=== PATIENT | male | born 1950 | race Caucasian/White ===

== ENCOUNTER 2020-05-27 15:05 | Inpatient (IN) ==
--- NOTE | 2020-05-27 15:44 | DR.SOBA ---
HPI Time Seen Time Seen by Provider: 05/27/20 15:39 Primary Care Physician Primary Care Physician: FANY HARRELL HPI Comment HPI Comment: PATIENT IS 69YR OLD MALE IN ER WITH LOW OXYGEN SATURATION ON VENTI MASK. PATIENT IS COMPLAING OF INCREASING SOB AND WHEEZING. ALSO SLIGHT PRODUCTIVE COUGH, YELLOW,LBDOMINAL DISCOMFORT AND DISTENSION. NO FEVER. COUGHING, YELLOW SPUTUM. COVID 19 TEST 04/18/20, POSITIVE AND 04/22/20 NEGATIVE. Complaints Chief Complaint Doctors Comments: PATIENT FROM THE CUSTODIAL WITH LOW OXYGEN SATURATION ON VENTI MASK NOTED TODAY. Chief Complaint:: REPORT CALLED PER [facility] STAFF, PT IS ON VM AND SATS <80'S DR. SOARES NOTIFIED PER [facility] STAFF AND PT IS TO BE EVALUATED , UPON ARRIVAL TO ER NOTED TO HAVE VM INFUSING PT ALERT AND ORIENTED NO DISTRESS NOTED PT C/O SOB, EXP SLIGHT BILATERAL WHEEZES NOTED ,,BR COVID-19 Coronavirus risk:travel/contact w/high risk person: No Has patient experienced Coronavirus symptoms: Yes Coronavirus symptoms experienced: Shortness of Breath Reviewed Nurses Notes Reviewed: Yes Source History Provided: Parent and Assisted Mode of Arrival Mode of Arrival: Stretcher Timing Onset of Chief Complaint: 05/27/20 Context Onset:: At Rest PE Risk Factors:: None History of:: Asthma, COPD and Anxiety Currently on:: Inhaled Bronchodilators Prehospital Care:: O2 and Inhaled B2 Modifying Factors Worsens:: Exertion and Lying Flat Improves:: Rest and Sitting Up Associated Signs and Symptoms Associated Signs and Symptoms: Wheeze, Cough, Nasal Congestion and Chest Pain If Chest Pain Quality: Pleuritic (TIGHTNESS.) Location: Substernal If Cough Cough: Productive and Yellow Other History Other History: COPD, ASTHMA. PMH PMH Past Medical History: Yes Past Medical History: Anemia, Anxiety, Arthritis, Asthma, COPD, CVA, Depression, Diabetes, GERD and Seizures Past Surgical History: Yes Surgical History: Cholecystectomy and Other Family History History of Family Medical Conditions: Yes Family Medical History: Cancer Social History Does patient currently use any type of tobacco product: No Have you used tobacco products in the last 12 months: No Type of Tobacco Use: None Does any household member use tobacco: No Alcohol Use: None Do you use any recreational Drugs:: No Lives Where: Assisted Travel Risk Coronavirus risk:travel/contact w/high risk person: No Has patient experienced Coronavirus symptoms: Yes Coronavirus symptoms experienced: Shortness of Breath Infectious screening In the last 2 months have you had wt loss of >10#?: NO Have you had fever, night sweats or hemotysis?: No Have you traveled outside the country in the last 6 months?: No Isolation: Droplet ROS Review of Systems Constitutional: See HPI, Weakness and Fatigue; negative Fever Eyes: No Symptoms Reported and See HPI; negative Blurred Vision and Diplopia ENTM: See HPI and Nose Congestion; negative Ear Pain, Nose Discharge and Throat Pain Respiratoy: See HPI, Productive Cough, Short of Breath and Wheezing Cardiovascular: See HPI and Chest Pain (TIGHTNESS); negative Syncope and Cyanosis Gastrointestinal/Abdominal: See HPI, Constipation and Other (ABDOMINAL DISTENTION); negative Abdominal Pain, Diarrhea, Nausea and Vomiting Genitourinary: See HPI; negative Dysuria Neurological: See HPI and Weakness; negative Headache and Dizziness Musculoskeletal: See HPI, Back Pain and Muscle Pain Integumentary: No Symptoms Reported and See HPI; negative Change in Color, Rash and Juandice Hematologic/Lymphatic: See HPI and Easy Bruising; negative Swollen Glands Endocrine: See HPI and Decreased Appetite; negative Increased Thirst and Increased Urine Psychiatric: No Symptoms Reported and See HPI All Other Systems: Reviewed and Negative PE Vital Signs Vitals: Temperature 97.9 F Pulse Rate 73 Respiratory Rate 25 Blood Pressure [Left Arm] 115/55 Blood Pressure [Right Arm] 110/51 Blood Pressure 127/53 O2 Sat by Pulse Oximetry 92 General Limitations: No Limitations General Appearance: Alert and In Distress Head Head Exam: Normal Inspection and Atraumatic Eyes Eye exam: Normal Appearance and PERRL; negative Scleral Icterus and Conjunctival Injection ENT ENT Exam: Normal Exam, Normal Oropharynx, Normal External Ear Exam and TM's Normal Bilaterally Neck Neck Exam: Normal Inspection and Trachea Midline; negative Tenderness and Lymphadenopathy Chest Chest Inspection: Normal Inspection and Symmetric Chest Wall Rise; negative Tenderness Respiratory Respiratory Exam: Normal Lung Sounds Bilat and Respiratory Distress; negative Accessory Muscle Use and Chest Wall Tenderness Respiratory Exam: Bilateral: Wheezing and Bilateral: Rhonchi and Lower: Wheezing and Lower: Rhonchi Cardiovascular Cardiovascular Exam: Regular Rate, Normal Rhythm and Normal Heart Sounds; negative Systolic Murmur and Diastolic Murmur Abdominal Exam Abdominal Exam: Normal Inspection, Normal Bowel Sounds, Soft and Distention; negative Tenderness Extremities Extremities Exam: Normal Inspection and Normal Capillary Refill; negative Tenderness and Calf Tenderness Back Back Exam: Normal Inspection; negative (R) CVA Tenderness and (L) CVA Tenderness Neurologic Neurological Exam: Alert and Oriented X3; negative Motor Sensory Deficit Psychiatric Psychiatric Exam: Normal Affect and Normal Mood Skin Skin Exam: Dry MDM Additional Information Obtained Additional Information Obtained From: Old Records Differential Diagnosis Differential Diagnosis: Asthma, Bronchitis, COPD, Dysrhythmia, Mycardial Infarction, Pneumonia, Pneumothorax, Respiratory Insufficiency and Sinusitis COURSE Treatment Treatment: SEE ORDERS. 1/2NS IN ER. Consultation Consultation Comments: DISCUSSED PATIENT WITH DR. SOARES. HE WILL ADMIT PATIENT. Education/Counseling Education/Counseling: Patient and Family Educated On: Diagnosis ROR Labs Reviewed Laboratory Results Reviewed?: Yes Result Diagrams: 06/06/20 08:06/06/20 08: Laboratory: WBC 4.1 X10^3/uL (3.6-10.0) 05/27/20 15:44 RBC 3.16 X10^6/uL (4.7-6.0) L 05/27/20 15:44 Hgb 9.7 g/dL (13.5-18.0) L 05/27/20 15:44 Hct 29.1 % (42.0-54.0) L 05/27/20 15:44 MCV 92.0 fL (80.0-100.0) 05/27/20 15:44 MCH 30.6 pg (27.0-34.0) 05/27/20 15:44 MCHC 33.2 g/dL (33.0-35.0) 05/27/20 15:44 RDW 15.4 % (11.6-16.5) 05/27/20 15:44 Plt Count 182 X10^3/uL (150.0-450.0) 05/27/20 15:44 MPV 7.9 fL (7.4-11.0) 05/27/20 15:44 Neut % (Auto) 85.4 % (42.0-75.0) H 05/27/20 15:44 Lymph % (Auto) 11.7 % (21.0-51.0) L 05/27/20 15:44 [place] % (Auto) 2.2 % (0.0-13.0) 05/27/20 15:44 Eos % (Auto) 0.6 % (0.9-2.9) L 05/27/20 15:44 Baso % (Auto) 0.1 % (0.2-1.0) L 05/27/20 15:44 Neut # (Auto) 3.5 x10^3/uL (2.2-4.8) 05/27/20 15:44 Lymph # (Auto) 0.5 X10^3/uL (1.3-2.9) L 05/27/20 15:44 [place] # (Auto) 0.1 x10^3/uL (0.3-0.8) L 05/27/20 15:44 Eos # (Auto) 0.0 x10^3/uL (0.0-0.2) 05/27/20 15:44 Baso # (Auto) 0.0 X10^3/uL (0.0-0.1) 05/27/20 15:44 Absolute Nucleated RBC 0.1 /100WBC 05/27/20 15:44 Sodium 136 mmol/L (136-145) 05/27/20 15:44 Corrected Sodium TNP 05/27/20 15:44 Potassium 3.5 mmol/L (3.5-5.1) 05/27/20 15:44 Chloride 98 mmol/L (98-107) 05/27/20 15:44 Carbon Dioxide 32.1 mmol/L (21-32) H 05/27/20 15:44 BUN 18 mg/dL (7-18) 05/27/20 15:44 Creatinine 1.58 mg/dL (0.70-1.30) H 05/27/20 15:44 Est GFR (MDRD) Af Amer 56 (>60) L 05/27/20 15:44 Est GFR (MDRD) Non-Af 46 (>60) L 05/27/20 15:44 Glucose 86 mg/dL (65-99) 05/27/20 15:44 Calcium 8.2 mg/dL (8.5-10.1) L 05/27/20 15:44 Corrected Calcium 9.0 mg/dL (8.5-10.1) 05/27/20 15:44 Total Bilirubin 0.40 mg/dL (0.2-1.0) 05/27/20 15:44 AST 86 Units/L (15-37) H 05/27/20 15:44 ALT 13 Units/L (12-78) 05/27/20 15:44 Alkaline Phosphatase 126 Units/L (46-116) H 05/27/20 15:44 Total Protein 6.1 g/dL (6.4-8.2) L 05/27/20 15:44 Albumin 3.0 g/dL (3.4-5.0) L 05/27/20 15:44 Globulin 3.1 g/dL (2.5-4.5) 05/27/20 15:44 Albumin/Globulin Ratio 1.0 Ratio (1.1-2.1) L 05/27/20 15:44 Amylase 41 Units/L (25-115) 05/27/20 14:54 Lipase 154 Units/L (73-393) 05/27/20 14:54 SARS-CoV-2 (PCR) Positive (NEGATIVE) A 05/27/20 15:32 XRAY XRAY Interpreted by: Radiologist (REPORT NOTED AND DISCUSSED WITH PATIENT. ) and Self Opioid Opioid Risk Tool Age ([place] box if 16-45): No History of Preadolescent Sexual Abuse: No Total: 0 Total Score Risk Category: Low Risk Copyright: Antonio KRAMER predicting aberrant behaviors Diagnosis Discharge Problem: 2019 novel coronavirus detected Pneumonia Qualifiers: Pneumonia type: due to unspecified organism Laterality: bilateral Lung location: lower lobe of lung Qualified Code(s): J18.9 - Pneumonia, unspecified organism Abdominal pain Qualifiers: Abdominal location: generalized Qualified Code(s): R10.84 - Generalized abdominal pain
--- NOTE | 2020-05-27 15:50 | RAD ---
CHEST, 1 VIEWHISTORY: Hypoxia and COVID-19 exposureStudy: Single view of the chest.Comparison:May 18, 2020Findings:The cardiomediastinal silhouette is normal.Patchy bilateral airspace opacities which are new from prior. Osseous structures demonstrate no acute abnormality.IMPRESSION:1. New patchy bilateral airspace opacities highly concerning for multifocal pneumonia.Electronically signed by: MARCE BRADLEY (May 27, 2020 15:49:47)
[2020-05-27 15:51] LABS: BASOPHILS % (AUTO) 0.1 % (0.2-1.0); EOSINOPHILS % (AUTO) 0.6 % (0.9-2.9); HEMATOCRIT 29.1 % (42.0-54.0); HEMOGLOBIN 9.7 g/dL (13.5-18.0); LYMPHOCYTES # (AUTO) 0.5 X10^3/uL (1.3-2.9); LYMPHOCYTES % (AUTO) 11.7 % (21.0-51.0); MEAN CORPUSCULAR HEMOGLOBIN 30.6 pg (27.0-34.0); MEAN CORPUSCULAR HGB CONC 33.2 g/dL (33.0-35.0); MEAN PLATELET VOLUME 7.9 fL (7.4-11.0); MONOCYTES # (AUTO) 0.1 x10^3/uL (0.3-0.8); MONOCYTES % (AUTO) 2.2 % (0.0-13.0); NEUTROPHILS # (AUTO) 3.5 x10^3/uL (2.2-4.8); NEUTROPHILS % (AUTO) 85.4 % (42.0-75.0); PLATELET COUNT 182 X10^3/uL (150.0-450.0); RED BLOOD COUNT 3.16 X10^6/uL (4.7-6.0); RED CELL DISTRIBUTION WIDTH 15.4 % (11.6-16.5); WHITE BLOOD COUNT 4.1 X10^3/uL (3.6-10.0)
[2020-05-27 16:08] LABS: ALANINE AMINOTRANSFERASE 13 Units/L (12-78); ALKALINE PHOSPHATASE 126 Units/L (46-116); ASPARTATE AMINO TRANSFERASE 86 Units/L (15-37); BLOOD UREA NITROGEN 18 mg/dL (7-18); CALCIUM 8.2 mg/dL (8.5-10.1); CARBON DIOXIDE 32.1 mmol/L (21-32); CHLORIDE 98 mmol/L (98-107); CREATININE 1.58 mg/dL (0.70-1.30); SODIUM 136 mmol/L (136-145); TOTAL PROTEIN 6.1 g/dL (6.4-8.2); eGFR NON BLACK RACES 46 (>60)
[2020-05-27 16:33] LABS: AMYLASE 41 Units/L (25-115); LIPASE 154 Units/L (73-393)
--- NOTE | 2020-05-27 16:53 | RAD ---
HISTORYCONSTIPATIONSTUDYKUBCOMPARISONAbdominal film May 05, 2020FINDINGSEvaluation of the abdomen de monstrates a normal bowel gas pattern. No pathological soft tissue mass or calcification can be obse rved. The bony structures are grossly intact. There is no significant increase in stool burden to guerrero ggest constipation.IMPRESSIONNo evidence for acute abdominal pathology identified.Electronically sign ed by: NERI SOLANO (May 27, 2020 16:53:10)
[2020-05-27] MEDS ORDERED: REMDESIVIR (INVESTIGATIONAL DRUG GS-5734) 200 MG in NS 250 ML IV 250 ML IV SCH (19:00)
[2020-05-27] MEDS ORDERED: NS 1/2 1000 ML IV 1,000 ML IV ONE (19:33)
[2020-05-27] MEDS: NS 1/2 1000 ML IV 1,000 ML IV SCH (20:00)
[2020-05-27 20:32] LABS: BASOPHILS % (AUTO) 0.2 % (0.2-1.0); EOSINOPHILS % (AUTO) 0.8 % (0.9-2.9); HEMATOCRIT 30.9 % (42.0-54.0); HEMOGLOBIN 10.3 g/dL (13.5-18.0); LYMPHOCYTES # (AUTO) 0.4 X10^3/uL (1.3-2.9); LYMPHOCYTES % (AUTO) 9.3 % (21.0-51.0); MEAN CORPUSCULAR HEMOGLOBIN 30.6 pg (27.0-34.0); MEAN CORPUSCULAR HGB CONC 33.4 g/dL (33.0-35.0); MEAN CORPUSCULAR VOLUME 91.6 fL (80.0-100.0); MEAN PLATELET VOLUME 7.9 fL (7.4-11.0); MONOCYTES # (AUTO) 0.1 x10^3/uL (0.3-0.8); MONOCYTES % (AUTO) 1.8 % (0.0-13.0); NEUTROPHILS # (AUTO) 3.5 x10^3/uL (2.2-4.8); NEUTROPHILS % (AUTO) 87.9 % (42.0-75.0); PLATELET COUNT 186 X10^3/uL (150.0-450.0); RED BLOOD COUNT 3.37 X10^6/uL (4.7-6.0); RED CELL DISTRIBUTION WIDTH 14.9 % (11.6-16.5)
[2020-05-27] MEDS: ASCORBIC ACID INJ MULTI-DOSE VIAL 1,500 MG in NS 100 ML IV 100 ML IV SCH (21:57)
[2020-05-27] MEDS: PLAQUENIL PO SCH (21:58)
[2020-05-27] MEDS: ROBITUSSIN DM PO SCH (21:58)
[2020-05-27] MEDS: ZINC SULFATE PO SCH (21:58)
[2020-05-27 22:06] LABS: ALANINE AMINOTRANSFERASE 19 Units/L (12-78); ALBUMIN 3.1 g/dL (3.4-5.0); ALKALINE PHOSPHATASE 143 Units/L (46-116); ASPARTATE AMINO TRANSFERASE 95 Units/L (15-37); BLOOD UREA NITROGEN 17 mg/dL (7-18); CALCIUM 8.6 mg/dL (8.5-10.1); CARBON DIOXIDE 33.1 mmol/L (21-32); CHLORIDE 97 mmol/L (98-107); COR CA(FOR HYPOALB) 9.3 mg/dL (8.5-10.1); CREATININE 1.62 mg/dL (0.70-1.30); SODIUM 134 mmol/L (136-145); TOTAL PROTEIN 7.2 g/dL (6.4-8.2); eGFR NON BLACK RACES 45 (>60)
[2020-05-28 00:48] VITALS: BMI 28.8
[2020-05-28] MEDS ORDERED: PHARMACY CONSULT LTC MEDICATIONS XX SCH (01:00)
[2020-05-28] MEDS: ASCORBIC ACID INJ MULTI-DOSE VIAL 1,500 MG in NS 100 ML IV 100 ML IV SCH ×4 (04:00→21:58)
[2020-05-28 05:47] LABS: BASOPHILS % (AUTO) 0.3 % (0.2-1.0); EOSINOPHILS % (AUTO) 1.2 % (0.9-2.9); HEMATOCRIT 31.2 % (42.0-54.0); HEMOGLOBIN 10.4 g/dL (13.5-18.0); LYMPHOCYTES # (AUTO) 0.4 X10^3/uL (1.3-2.9); MEAN CORPUSCULAR HEMOGLOBIN 30.6 pg (27.0-34.0); MEAN CORPUSCULAR HGB CONC 33.3 g/dL (33.0-35.0); MEAN CORPUSCULAR VOLUME 91.9 fL (80.0-100.0); MEAN PLATELET VOLUME 8.6 fL (7.4-11.0); MONOCYTES # (AUTO) 0.1 x10^3/uL (0.3-0.8); MONOCYTES % (AUTO) 1.7 % (0.0-13.0); NEUTROPHILS # (AUTO) 3.3 x10^3/uL (2.2-4.8); NEUTROPHILS % (AUTO) 86.8 % (42.0-75.0); PLATELET COUNT 209 X10^3/uL (150.0-450.0); RED CELL DISTRIBUTION WIDTH 15.6 % (11.6-16.5); WHITE BLOOD COUNT 3.8 X10^3/uL (3.6-10.0)
[2020-05-28 06:24] LABS: ALANINE AMINOTRANSFERASE 27 Units/L (12-78); ALBUMIN 2.8 g/dL (3.4-5.0); ALKALINE PHOSPHATASE 232 Units/L (46-116); ASPARTATE AMINO TRANSFERASE 106 Units/L (15-37); BLOOD UREA NITROGEN 17 mg/dL (7-18); CALCIUM 8.5 mg/dL (8.5-10.1); CARBON DIOXIDE 28.5 mmol/L (21-32); CHLORIDE 97 mmol/L (98-107); COR CA(FOR HYPOALB) 9.5 mg/dL (8.5-10.1); SODIUM 134 mmol/L (136-145); TOTAL PROTEIN 6.8 g/dL (6.4-8.2); eGFR NON BLACK RACES 53 (>60)
[2020-05-28] MEDS ORDERED: VENTOLIN or PROAIR HFA ONE (08:36)
[2020-05-28] MEDS ORDERED: VITAMIN A PO SCH (09:00)
[2020-05-28] MEDS ORDERED: VITAMIN D (1.25MG) PO SCH (09:00)
[2020-05-28] MEDS: ROBITUSSIN DM PO SCH ×4 (09:35→21:59)
[2020-05-28] MEDS: VENTOLIN or PROAIR HFA IN PRN ×2 (09:35→13:20)
[2020-05-28] MEDS: PLAQUENIL PO SCH ×2 (09:39→21:59)
[2020-05-28] MEDS: DECADRON TAB PO SCH (09:40)
[2020-05-28] MEDS: TRICOR TAB 160 MG PO SCH (09:40)
[2020-05-28] MEDS: VSL#3 PO SCH (09:41)
[2020-05-28] MEDS: ZINC SULFATE PO SCH ×2 (09:42→21:59)
[2020-05-28] MEDS: REMDESIVIR (INVESTIGATIONAL DRUG GS-5734) 100 MG in NS 250 ML IV 250 ML IV SCH (11:00)
[2020-05-28] MEDS: LOVENOX INJ 40 MG SYR SC SCH (12:41)
[2020-05-28] MEDS: PULMICORT NEB TX 0.5 MG NEB SCH ×2 (15:45→20:35)
[2020-05-28] MEDS: NS 1/2 1000 ML IV 1,000 ML IV SCH (22:00)
[2020-05-29] MEDS: ASCORBIC ACID INJ MULTI-DOSE VIAL 1,500 MG in NS 100 ML IV 100 ML IV SCH ×4 (03:59→20:09)
[2020-05-29] MEDS: NS 1/2 1000 ML IV 1,000 ML IV SCH ×2 (03:59→16:47)
[2020-05-29 05:39] LABS: BASOPHILS % (AUTO) 0.3 % (0.2-1.0); EOSINOPHILS % (AUTO) 0.1 % (0.9-2.9); HEMOGLOBIN 9.7 g/dL (13.5-18.0); LYMPHOCYTES # (AUTO) 0.3 X10^3/uL (1.3-2.9); LYMPHOCYTES % (AUTO) 6.3 % (21.0-51.0); MEAN CORPUSCULAR HEMOGLOBIN 30.7 pg (27.0-34.0); MEAN CORPUSCULAR HGB CONC 33.5 g/dL (33.0-35.0); MEAN CORPUSCULAR VOLUME 91.5 fL (80.0-100.0); MEAN PLATELET VOLUME 8.6 fL (7.4-11.0); MONOCYTES # (AUTO) 0.2 x10^3/uL (0.3-0.8); MONOCYTES % (AUTO) 3.7 % (0.0-13.0); NEUTROPHILS # (AUTO) 4.4 x10^3/uL (2.2-4.8); NEUTROPHILS % (AUTO) 89.6 % (42.0-75.0); PLATELET COUNT 243 X10^3/uL (150.0-450.0); RED BLOOD COUNT 3.17 X10^6/uL (4.7-6.0); RED CELL DISTRIBUTION WIDTH 15.2 % (11.6-16.5); WHITE BLOOD COUNT 4.9 X10^3/uL (3.6-10.0)
[2020-05-29 06:02] LABS: ALANINE AMINOTRANSFERASE 44 Units/L (12-78); ALBUMIN 2.5 g/dL (3.4-5.0); ALKALINE PHOSPHATASE 335 Units/L (46-116); ASPARTATE AMINO TRANSFERASE 94 Units/L (15-37); BLOOD UREA NITROGEN 16 mg/dL (7-18); CALCIUM 7.9 mg/dL (8.5-10.1); CARBON DIOXIDE 26.6 mmol/L (21-32); CHLORIDE 97 mmol/L (98-107); COR CA(FOR HYPOALB) 9.1 mg/dL (8.5-10.1); CREATININE 1.43 mg/dL (0.70-1.30); SODIUM 134 mmol/L (136-145); TOTAL PROTEIN 6.5 g/dL (6.4-8.2); eGFR NON BLACK RACES 52 (>60)
[2020-05-29] MEDS: ROBITUSSIN DM PO SCH ×4 (09:15→20:09)
[2020-05-29] MEDS: VSL#3 PO SCH (09:15)
[2020-05-29] MEDS: ZINC SULFATE PO SCH ×2 (09:16→20:09)
[2020-05-29] MEDS: TRICOR TAB 160 MG PO SCH (09:16)
[2020-05-29] MEDS: VITAMIN D3 125 mcg (5,000 UNITS) PO SCH (09:16)
[2020-05-29] MEDS: LOVENOX INJ 40 MG SYR SC SCH (09:17)
[2020-05-29] MEDS: DECADRON TAB PO SCH (09:17)
[2020-05-29] MEDS: PLAQUENIL PO SCH ×2 (09:19→20:09)
[2020-05-29] MEDS: REMDESIVIR (INVESTIGATIONAL DRUG GS-5734) 100 MG in NS 250 ML IV 250 ML IV SCH (09:20)
[2020-05-29] MEDS: VITAMIN A PO SCH (09:20)
[2020-05-29] MEDS: PULMICORT NEB TX 0.5 MG NEB SCH ×2 (09:25→20:57)
--- NOTE | 2020-05-29 11:32 | PCM.PROG ---
Progress Note Progress Note for Day of Date of Exam: 05/29/20 Subjective Subjective: Pt is a 69 yo m admitted for COVID19 pneumonia. He was placed on BiPAP yesterday, this morning he was on non-rebreather. He reports some improvement in respiratory status but states had difficulty breathing overnight. Labs/imaging: Wbc 4.9, Hgb 9.7, Plt 243, Na 134, K 4.2, Cr 1.4>1.43, Gluc 100. Treatment course includes immune supplements, Remdesivir, Hydroxychloroquine, Decadron, and bronchodilators. Will continue treatments and closely monitor patient. Follow up labs/imaging in the morning. Past Medical Family Social History Past Med/Fam/Surg Hx: No changes since H&P Allergies: Allergies doxycycline Allergy (Verified 05/27/20 16:45) Sulfa (Sulfonamide Antibiotics) [SULFA] Allergy (Verified 05/27/20 16:45) sulfamethoxazole [From Bactrim] Allergy (Verified 05/27/20 16:45) trimethoprim [From Bactrim] Allergy (Verified 05/27/20 16:45) Review of Systems ROS: No change since H&P Vital Signs and I&O's Vital Signs: Temperature 99.0 F Pulse Rate 75 Respiratory Rate 24 Blood Pressure [Left Arm] 115/55 Blood Pressure [Right Arm] 110/51 Blood Pressure 151/68 O2 Sat by Pulse Oximetry 94 Intake and Output: Intake & Output 05/26/20 05/27/20 05/28/20 05/29/20 23:59 23:59 23:59 23:59 Intake Total 644 / 644 1882 / 1882 422 / 422 Output Total 400 / 400 1150 / 1150 600 / 600 Balance 244 / 244 732 / 732 -178 / -178 Physical Exam Oriented: Normal Eyes: Normal Ear: Normal Respiratory: Diminished and Rhonchi Cardiovascular: Normal : Normal Auscultation: Bowel Sounds: Normal Tenderness: Normal Skin: Normal Musculoskeletal: Normal Speech Pattern: Clear Laboratory and Diagnostics Result Diagrams: 05/29/20 04:51 05/29/20 04:51 Labs: Laboratory WBC 4.9 X10^3/uL (3.6-10.0) 05/29/20 04:51 RBC 3.17 X10^6/uL (4.7-6.0) L 05/29/20 04:51 Hgb 9.7 g/dL (13.5-18.0) L 05/29/20 04:51 Hct 29.0 % (42.0-54.0) L 05/29/20 04:51 MCV 91.5 fL (80.0-100.0) 05/29/20 04:51 MCH 30.7 pg (27.0-34.0) 05/29/20 04:51 MCHC 33.5 g/dL (33.0-35.0) 05/29/20 04:51 RDW 15.2 % (11.6-16.5) 05/29/20 04:51 Plt Count 243 X10^3/uL (150.0-450.0) 05/29/20 04:51 MPV 8.6 fL (7.4-11.0) 05/29/20 04:51 Neut % (Auto) 89.6 % (42.0-75.0) H 05/29/20 04:51 Lymph % (Auto) 6.3 % (21.0-51.0) L 05/29/20 04:51 [place] % (Auto) 3.7 % (0.0-13.0) 05/29/20 04:51 Eos % (Auto) 0.1 % (0.9-2.9) L 05/29/20 04:51 Baso % (Auto) 0.3 % (0.2-1.0) 05/29/20 04:51 Neut # (Auto) 4.4 x10^3/uL (2.2-4.8) 05/29/20 04:51 Lymph # (Auto) 0.3 X10^3/uL (1.3-2.9) L 05/29/20 04:51 [place] # (Auto) 0.2 x10^3/uL (0.3-0.8) L 05/29/20 04:51 Eos # (Auto) 0.0 x10^3/uL (0.0-0.2) 05/29/20 04:51 Baso # (Auto) 0.0 X10^3/uL (0.0-0.1) 05/29/20 04:51 Absolute Nucleated RBC 0.0 /100WBC 05/29/20 04:51 Sodium 134 mmol/L (136-145) L 05/29/20 04:51 Corrected Sodium TNP 05/29/20 04:51 Potassium 4.2 mmol/L (3.5-5.1) 05/29/20 04:51 Chloride 97 mmol/L (98-107) L 05/29/20 04:51 Carbon Dioxide 26.6 mmol/L (21-32) 05/29/20 04:51 BUN 16 mg/dL (7-18) 05/29/20 04:51 Creatinine 1.43 mg/dL (0.70-1.30) H 05/29/20 04:51 Est GFR (MDRD) Af Amer > 60 (>60) 05/29/20 04:51 Est GFR (MDRD) Non-Af 52 (>60) L 05/29/20 04:51 Glucose 100 mg/dL (65-99) H 05/29/20 04:51 Calcium 7.9 mg/dL (8.5-10.1) L 05/29/20 04:51 Corrected Calcium 9.1 mg/dL (8.5-10.1) 05/29/20 04:51 Total Bilirubin 0.40 mg/dL (0.2-1.0) 05/29/20 04:51 AST 94 Units/L (15-37) H 05/29/20 04:51 ALT 44 Units/L (12-78) 05/29/20 04:51 Alkaline Phosphatase 335 Units/L (46-116) H 05/29/20 04:51 Total Protein 6.5 g/dL (6.4-8.2) 05/29/20 04:51 Albumin 2.5 g/dL (3.4-5.0) L 05/29/20 04:51 Globulin 4.0 g/dL (2.5-4.5) 05/29/20 04:51 Albumin/Globulin Ratio 0.6 Ratio (1.1-2.1) L 05/29/20 04:51 Amylase 41 Units/L (25-115) 05/27/20 14:54 Lipase 154 Units/L (73-393) 05/27/20 14:54 SARS-CoV-2 (PCR) Positive (NEGATIVE) A 05/27/20 15:32 Plan (1) COVID-19: Status: Acute Plan: Treatments per protocol. RT support
[2020-05-29] MEDS: VENTOLIN or PROAIR HFA IN PRN (12:45)
[2020-05-30] MEDS: ASCORBIC ACID INJ MULTI-DOSE VIAL 1,500 MG in NS 100 ML IV 100 ML IV SCH ×4 (02:36→21:38)
[2020-05-30] MEDS ORDERED: NS 1/2 1000 ML IV 1,000 ML IV ONE (02:37)
[2020-05-30] MEDS: NS 1/2 1000 ML IV 1,000 ML IV SCH ×3 (02:38→21:39)
[2020-05-30 05:13] LABS: ABG BASE EXCESS 7.6 mmol/L (-2.0-2.0)
[2020-05-30] MEDS: NORCO 5/325 MG TAB PO PRN (05:13)
[2020-05-30 05:15] LABS: ABG ALLEN TEST POS; ABG HCO3 32.7 mmol/L (22-26)
[2020-05-30 05:36] LABS: BASOPHILS % (AUTO) 0.4 % (0.2-1.0); HEMATOCRIT 27.9 % (42.0-54.0); HEMOGLOBIN 9.4 g/dL (13.5-18.0); LYMPHOCYTES # (AUTO) 0.3 X10^3/uL (1.3-2.9); LYMPHOCYTES % (AUTO) 4.7 % (21.0-51.0); MEAN CORPUSCULAR HEMOGLOBIN 30.9 pg (27.0-34.0); MEAN CORPUSCULAR HGB CONC 33.5 g/dL (33.0-35.0); MEAN CORPUSCULAR VOLUME 92.3 fL (80.0-100.0); MEAN PLATELET VOLUME 8.9 fL (7.4-11.0); MONOCYTES # (AUTO) 0.2 x10^3/uL (0.3-0.8); MONOCYTES % (AUTO) 3.4 % (0.0-13.0); NEUTROPHILS # (AUTO) 6.2 x10^3/uL (2.2-4.8); NEUTROPHILS % (AUTO) 91.5 % (42.0-75.0); PLATELET COUNT 258 X10^3/uL (150.0-450.0); RED BLOOD COUNT 3.02 X10^6/uL (4.7-6.0); RED CELL DISTRIBUTION WIDTH 15.5 % (11.6-16.5); WHITE BLOOD COUNT 6.8 X10^3/uL (3.6-10.0)
[2020-05-30 06:05] LABS: ALANINE AMINOTRANSFERASE 37 Units/L (12-78); ALBUMIN 2.6 g/dL (3.4-5.0); ALKALINE PHOSPHATASE 267 Units/L (46-116); ASPARTATE AMINO TRANSFERASE 69 Units/L (15-37); BLOOD UREA NITROGEN 17 mg/dL (7-18); CALCIUM 8.5 mg/dL (8.5-10.1); CHLORIDE 101 mmol/L (98-107); COR CA(FOR HYPOALB) 9.6 mg/dL (8.5-10.1); COR NA(FOR HYPERGLY) 137 mmol/L (136-145); CREATININE 1.26 mg/dL (0.70-1.30); SODIUM 137 mmol/L (136-145); TOTAL PROTEIN 6.5 g/dL (6.4-8.2); eGFR NON BLACK RACES > 60 (>60)
[2020-05-30 06:13] LABS: ANISOCYTOSIS SLIGHT; BAND NEUTROPHILS % 2 % (0-10); HYPOCHROMASIA 1+; OVALOCYTES PRESENT; PLATELET MORPHOLOGY COMMENT NORMAL (NORMAL)
[2020-05-30] MEDS: PULMICORT NEB TX 0.5 MG NEB SCH ×2 (09:15→22:00)
[2020-05-30] MEDS: VENTOLIN or PROAIR HFA IN PRN ×3 (09:15→16:45)
[2020-05-30] MEDS: DECADRON TAB PO SCH (09:36)
[2020-05-30] MEDS: TRICOR TAB 160 MG PO SCH (09:37)
[2020-05-30] MEDS: PLAQUENIL PO SCH ×2 (09:37→21:38)
[2020-05-30] MEDS: ZINC SULFATE PO SCH ×2 (09:38→21:38)
[2020-05-30] MEDS: VITAMIN A PO SCH (09:38)
[2020-05-30] MEDS: VSL#3 PO SCH (09:39)
[2020-05-30] MEDS: VITAMIN D3 125 mcg (5,000 UNITS) PO SCH (09:39)
[2020-05-30] MEDS: LOVENOX INJ 40 MG SYR SC SCH (09:50)
[2020-05-30] MEDS: ROBITUSSIN DM PO SCH ×4 (10:22→21:39)
--- NOTE | 2020-05-30 10:27 | PCM.PROG ---
Progress Note Progress Note for Day of Date of Exam: 05/30/20 Subjective Subjective: Pt is a 69 yo m admitted for COVID19 pneumonia(positive on 05/27). His respiratory status this morning has improved and he currently on 6L nc. Labs/imaging: Wbc 6.8, Hgb 9.4, Plt 258, Na 137, K 4.2, Cr 1.43>1.26, Gluc 114, CRP 200, AB.45/47/84/32.7/97%. CXR pending. Continue treatment course including immune supplements, Remdesivir, Hydroxychloroquine, Decadron, and bronchodilators. Will continue to monitor patient and follow up labs/imaging in the morning. Past Medical Family Social History Past Med/Fam/Surg Hx: No changes since H&P Allergies: Allergies doxycycline Allergy (Verified 05/27/20 16:45) Sulfa (Sulfonamide Antibiotics) [SULFA] Allergy (Verified 05/27/20 16:45) sulfamethoxazole [From Bactrim] Allergy (Verified 05/27/20 16:45) trimethoprim [From Bactrim] Allergy (Verified 05/27/20 16:45) Review of Systems ROS: No change since H&P Vital Signs and I&O's Vital Signs: Temperature 97.5 F Pulse Rate 67 Respiratory Rate 12 Blood Pressure [Left Arm] 115/55 Blood Pressure [Right Arm] 110/51 Blood Pressure 127/58 O2 Sat by Pulse Oximetry 96 Intake and Output: Intake & Output 05/27/20 05/28/20 05/29/20 05/30/20 23:59 23:59 23:59 23:59 Intake Total 644 / 644 1882 / 1882 2141 / 2141 401 / 401 Output Total 400 / 400 1150 / 1150 1150 / 1150 300 / 300 Balance 244 / 244 732 / 732 991 / 991 101 / 101 Physical Exam Oriented: Normal Eyes: Normal Ear: Normal Respiratory: Diminished and Rhonchi Cardiovascular: Normal : Normal Auscultation: Bowel Sounds: Normal Tenderness: Normal Skin: Normal Musculoskeletal: Normal Speech Pattern: Clear Laboratory and Diagnostics Result Diagrams: 05/30/20 04:36 05/30/20 04:36 Labs: Laboratory WBC 6.8 X10^3/uL (3.6-10.0) 05/30/20 04:36 RBC 3.02 X10^6/uL (4.7-6.0) L 05/30/20 04:36 Hgb 9.4 g/dL (13.5-18.0) L 05/30/20 04:36 Hct 27.9 % (42.0-54.0) L 05/30/20 04:36 MCV 92.3 fL (80.0-100.0) 05/30/20 04:36 MCH 30.9 pg (27.0-34.0) 05/30/20 04:36 MCHC 33.5 g/dL (33.0-35.0) 05/30/20 04:36 RDW 15.5 % (11.6-16.5) 05/30/20 04:36 Plt Count 258 X10^3/uL (150.0-450.0) 05/30/20 04:36 Plt Count Comment Adequate (ADEQUATE) 05/30/20 04:36 MPV 8.9 fL (7.4-11.0) 05/30/20 04:36 Neut % (Auto) 91.5 % (42.0-75.0) H 05/30/20 04:36 Lymph % (Auto) 4.7 % (21.0-51.0) L 05/30/20 04:36 [place] % (Auto) 3.4 % (0.0-13.0) 05/30/20 04:36 Eos % (Auto) 0.0 % (0.9-2.9) L 05/30/20 04:36 Baso % (Auto) 0.4 % (0.2-1.0) 05/30/20 04:36 Neut # (Auto) 6.2 x10^3/uL (2.2-4.8) H 05/30/20 04:36 Lymph # (Auto) 0.3 X10^3/uL (1.3-2.9) L 05/30/20 04:36 [place] # (Auto) 0.2 x10^3/uL (0.3-0.8) L 05/30/20 04:36 Eos # (Auto) 0.0 x10^3/uL (0.0-0.2) 05/30/20 04:36 Baso # (Auto) 0.0 X10^3/uL (0.0-0.1) 05/30/20 04:36 Absolute Nucleated RBC 0.0 /100WBC 05/30/20 04:36 Total Counted 100 05/30/20 04:36 Neutrophils % (Manual) 90 % (39-76) H 05/30/20 04:36 Band Neutrophils % 2 % (0-10) 05/30/20 04:36 Lymphocytes % (Manual) 4 % (13-43) L 05/30/20 04:36 Monocytes % (Manual) 4 % (4-9) 05/30/20 04:36 Plt Morphology Comment Normal (NORMAL) 05/30/20 04:36 RBC Morphology Abnormal (NORMAL) 05/30/20 04:36 Hypochromasia 1+ A 05/30/20 04:36 Anisocytosis Slight A 05/30/20 04:36 Ovalocytes Present 05/30/20 04:36 Sample Site Lrad 05/30/20 05:08 ABG pH 7.450 (7.35-7.45) 05/30/20 05:08 ABG pCO2 47.0 mmHg (35.0-45.0) H 05/30/20 05:08 ABG pO2 84.0 mmHg (80.0-100.0) 05/30/20 05:08 ABG HCO3 32.7 mmol/L (22-26) H* 05/30/20 05:08 ABG O2 Saturation 97.0 % (90-100) 05/30/20 05:08 ABG Base Excess 7.6 mmol/L (-2.0-2.0) H 05/30/20 05:08 [place] Test Pos 05/30/20 05:08 A-a Gradient 570.0 mmHg 05/30/20 05:08 FiO2 100.0 05/30/20 05:08 Blood Gas Comments Yashira abg well 05/30/20 05:08 Sodium 137 mmol/L (136-145) 05/30/20 04:36 Corrected Sodium 137 mmol/L (136-145) 05/30/20 04:36 Potassium 4.2 mmol/L (3.5-5.1) 05/30/20 04:36 Chloride 101 mmol/L (98-107) 05/30/20 04:36 Carbon Dioxide 28.0 mmol/L (21-32) 05/30/20 04:36 BUN 17 mg/dL (7-18) 05/30/20 04:36 Creatinine 1.26 mg/dL (0.70-1.30) 05/30/20 04:36 Est GFR (MDRD) Af Amer > 60 (>60) 05/30/20 04:36 Est GFR (MDRD) Non-Af > 60 (>60) 05/30/20 04:36 Glucose 114 mg/dL (65-99) H 05/30/20 04:36 Calcium 8.5 mg/dL (8.5-10.1) 05/30/20 04:36 Corrected Calcium 9.6 mg/dL (8.5-10.1) 05/30/20 04:36 Total Bilirubin 0.30 mg/dL (0.2-1.0) 05/30/20 04:36 AST 69 Units/L (15-37) H 05/30/20 04:36 ALT 37 Units/L (12-78) 05/30/20 04:36 Alkaline Phosphatase 267 Units/L (46-116) H 05/30/20 04:36 C-Reactive Protein 200.70 mg/L (0-3.0) H 05/30/20 04:36 Total Protein 6.5 g/dL (6.4-8.2) 05/30/20 04:36 Albumin 2.6 g/dL (3.4-5.0) L 05/30/20 04:36 Globulin 3.9 g/dL (2.5-4.5) 05/30/20 04:36 Albumin/Globulin Ratio 0.7 Ratio (1.1-2.1) L 05/30/20 04:36 Amylase 41 Units/L (25-115) 05/27/20 14:54 Lipase 154 Units/L (73-393) 05/27/20 14:54 SARS-CoV-2 (PCR) Positive (NEGATIVE) A 05/27/20 15:32 Plan (1) COVID-19: Status: Acute Plan: Treatments per protocol. RT support
[2020-05-30] MEDS: REMDESIVIR (INVESTIGATIONAL DRUG GS-5734) 100 MG in NS 250 ML IV 250 ML IV SCH (12:31)
--- NOTE | 2020-05-30 14:10 | RAD ---
HISTORYCOVID 19, HYPOXIASTUDYCHEST, 1 VIEWCOMPARISONAugust 2019FINDINGSThe trachea is midline. The cardiac silhouette is unremarkable . The lungs demonstrate persistent multifocal airspace opacities with worsening aeration of the left lower lobe and right upper lobe.. The bony thorax is unremarkable.IMPRESSIONWorsening multifocal airspace disease.Electronically signed by: GAGANDEEP BERNSTEIN (May 30, 2020 14:09:36)
[2020-05-30] MEDS ORDERED: VISTARIL PO ONE (14:22)
[2020-05-30] MEDS: VISTARIL PO PRN (14:40)
[2020-05-31] MEDS: ASCORBIC ACID INJ MULTI-DOSE VIAL 1,500 MG in NS 100 ML IV 100 ML IV SCH ×5 (02:01→21:30)
[2020-05-31 06:12] LABS: ALANINE AMINOTRANSFERASE 39 Units/L (12-78); ALBUMIN 2.8 g/dL (3.4-5.0); ALKALINE PHOSPHATASE 272 Units/L (46-116); ASPARTATE AMINO TRANSFERASE 62 Units/L (15-37); BLOOD UREA NITROGEN 19 mg/dL (7-18); CALCIUM 8.4 mg/dL (8.5-10.1); CARBON DIOXIDE 28.4 mmol/L (21-32); CHLORIDE 102 mmol/L (98-107); COR CA(FOR HYPOALB) 9.4 mg/dL (8.5-10.1); CREATININE 1.25 mg/dL (0.70-1.30); SODIUM 139 mmol/L (136-145); eGFR NON BLACK RACES > 60 (>60)
[2020-05-31 06:20] LABS: BASOPHILS % (AUTO) 0.3 % (0.2-1.0); HEMATOCRIT 29.9 % (42.0-54.0); HEMOGLOBIN 9.9 g/dL (13.5-18.0); LYMPHOCYTES # (AUTO) 0.4 X10^3/uL (1.3-2.9); LYMPHOCYTES % (AUTO) 4.6 % (21.0-51.0); MEAN CORPUSCULAR HEMOGLOBIN 30.3 pg (27.0-34.0); MEAN CORPUSCULAR HGB CONC 33.1 g/dL (33.0-35.0); MEAN CORPUSCULAR VOLUME 91.5 fL (80.0-100.0); MEAN PLATELET VOLUME 8.6 fL (7.4-11.0); MONOCYTES # (AUTO) 0.3 x10^3/uL (0.3-0.8); MONOCYTES % (AUTO) 3.1 % (0.0-13.0); NEUTROPHILS # (AUTO) 7.7 x10^3/uL (2.2-4.8); PLATELET COUNT 280 X10^3/uL (150.0-450.0); RED BLOOD COUNT 3.27 X10^6/uL (4.7-6.0); RED CELL DISTRIBUTION WIDTH 15.7 % (11.6-16.5); WHITE BLOOD COUNT 8.4 X10^3/uL (3.6-10.0)
[2020-05-31 07:30] LABS: PLATELET MORPHOLOGY COMMENT NORMAL (NORMAL)
[2020-05-31] MEDS: PULMICORT NEB TX 0.5 MG NEB SCH ×2 (08:05→21:30)
[2020-05-31] MEDS ORDERED: REMDESIVIR (INVESTIGATIONAL DRUG GS-5734) IV ONE (08:57)
[2020-05-31] MEDS ORDERED: NS 250 ML IV 250 ML IV ONE (09:19)
[2020-05-31] MEDS: ZINC SULFATE PO SCH ×2 (10:01→21:30)
[2020-05-31] MEDS: VSL#3 PO SCH (10:01)
[2020-05-31] MEDS: VITAMIN D3 125 mcg (5,000 UNITS) PO SCH (10:01)
[2020-05-31] MEDS: REMDESIVIR (INVESTIGATIONAL DRUG GS-5734) 100 MG in NS 250 ML IV 250 ML IV SCH (10:02)
[2020-05-31] MEDS: ROBITUSSIN DM PO SCH ×4 (10:02→21:30)
[2020-05-31] MEDS: TRICOR TAB 160 MG PO SCH (10:02)
[2020-05-31] MEDS: VITAMIN A PO SCH (10:02)
[2020-05-31] MEDS: PLAQUENIL PO SCH ×2 (10:03→21:30)
[2020-05-31] MEDS: LOVENOX INJ 40 MG SYR SC SCH (10:03)
[2020-05-31] MEDS: DECADRON TAB PO SCH (10:03)
[2020-05-31] MEDS: VISTARIL PO PRN ×2 (11:30→22:22)
[2020-05-31] MEDS: VENTOLIN or PROAIR HFA IN PRN ×3 (12:10→21:30)
--- NOTE | 2020-05-31 16:48 | RAD ---
HISTORYCENTRAL LINE PLACEMENTSTUDYCHEST, 1 [id number]/16/2020FINDINGSThe heart is less prominent. The pulmonary vessels are less prominent. There is some hazy airspace opacity throughout both lungs which is more prominent on the right and has decreased. No effusion or pneumothorax is seen. There is a left subclavian catheter in place with the tip in the distal superior vena cava.IMPRESSIONStatus post left subclavian catheter placement in good position.Slight decrease in the heart size with slowly resolving pulmonary edema.Hazy airspace opacities throughout both lungs which is more prominent on the right and has decreased.Electronically signed by: TASHIA CAVAZOS (May 31, 2020 16:46:43)
[2020-05-31] MEDS: NS 1/2 1000 ML IV 1,000 ML IV SCH ×2 (19:39→22:20)
[2020-05-31] MEDS: NORCO 5/325 MG TAB PO PRN (21:32)
[2020-06-01] MEDS: ASCORBIC ACID INJ MULTI-DOSE VIAL 1,500 MG in NS 100 ML IV 100 ML IV SCH ×4 (02:42→20:10)
[2020-06-01] MEDS: PULMICORT NEB TX 0.5 MG NEB SCH ×2 (08:20→21:55)
[2020-06-01] MEDS: VENTOLIN or PROAIR HFA IN PRN (08:20)
[2020-06-01] MEDS: LOVENOX INJ 40 MG SYR SC SCH (08:22)
[2020-06-01] MEDS: COLACE CAP 100 MG PO SCH ×2 (08:23→20:10)
[2020-06-01] MEDS: DECADRON TAB PO SCH (08:23)
[2020-06-01] MEDS: MILK OF MAGNESIA PO SCH (08:23)
[2020-06-01] MEDS: PLAQUENIL PO SCH ×2 (08:25→20:10)
[2020-06-01] MEDS: ROBITUSSIN DM PO SCH ×4 (08:25→20:12)
[2020-06-01] MEDS: ZINC SULFATE PO SCH ×2 (08:25→20:12)
[2020-06-01] MEDS: TRICOR TAB 160 MG PO SCH (08:25)
[2020-06-01] MEDS: VITAMIN A PO SCH (08:26)
[2020-06-01] MEDS: VITAMIN D3 125 mcg (5,000 UNITS) PO SCH (08:26)
[2020-06-01] MEDS: VSL#3 PO SCH (08:26)
[2020-06-01] MEDS: NORCO 5/325 MG TAB PO PRN (08:30)
[2020-06-01] MEDS ORDERED: ARTIFICIAL TEARS DROPS AFFEYE PRN (10:17)
[2020-06-01] MEDS: COREG TAB 12.5 MG PO SCH ×2 (11:50→20:11)
[2020-06-01] MEDS: PriLOSEC PO SCH ×2 (11:50→20:11)
[2020-06-01] MEDS: LIBRIUM PO PRN (11:50)
[2020-06-01] MEDS: SINEMET (PLAIN) 25/250 MG PO SCH ×3 (11:50→21:00)
[2020-06-01] MEDS: SINGULAIR TAB 10 MG PO SCH (11:50)
[2020-06-01] MEDS: NS 1/2 1000 ML IV 1,000 ML IV SCH ×2 (19:19→20:09)
[2020-06-01] MEDS ORDERED: NS 1/2 1000 ML IV 1,000 ML IV ONE (19:43)
[2020-06-02] MEDS: NS 1/2 1000 ML IV 1,000 ML IV SCH ×2 (02:13→21:17)
[2020-06-02] MEDS: ASCORBIC ACID INJ MULTI-DOSE VIAL 1,500 MG in NS 100 ML IV 100 ML IV SCH ×4 (03:29→21:17)
[2020-06-02 05:00] LABS: BASOPHILS % (AUTO) 0.1 % (0.2-1.0); HEMATOCRIT 28.6 % (42.0-54.0); HEMOGLOBIN 9.4 g/dL (13.5-18.0); LYMPHOCYTES # (AUTO) 0.3 X10^3/uL (1.3-2.9); LYMPHOCYTES % (AUTO) 2.7 % (21.0-51.0); MEAN CORPUSCULAR HEMOGLOBIN 30.8 pg (27.0-34.0); MEAN CORPUSCULAR VOLUME 93.4 fL (80.0-100.0); MEAN PLATELET VOLUME 8.5 fL (7.4-11.0); MONOCYTES # (AUTO) 0.2 x10^3/uL (0.3-0.8); MONOCYTES % (AUTO) 1.7 % (0.0-13.0); NEUTROPHILS # (AUTO) 9.2 x10^3/uL (2.2-4.8); NEUTROPHILS % (AUTO) 95.5 % (42.0-75.0); PLATELET COUNT 152 X10^3/uL (150.0-450.0); RED BLOOD COUNT 3.06 X10^6/uL (4.7-6.0); RED CELL DISTRIBUTION WIDTH 15.8 % (11.6-16.5); WHITE BLOOD COUNT 9.6 X10^3/uL (3.6-10.0)
[2020-06-02 05:13] LABS: ALANINE AMINOTRANSFERASE 21 Units/L (12-78); ALBUMIN 2.3 g/dL (3.4-5.0); ALKALINE PHOSPHATASE 223 Units/L (46-116); ASPARTATE AMINO TRANSFERASE 41 Units/L (15-37); BLOOD UREA NITROGEN 26 mg/dL (7-18); CALCIUM 8.3 mg/dL (8.5-10.1); CARBON DIOXIDE 29.8 mmol/L (21-32); CHLORIDE 104 mmol/L (98-107); COR CA(FOR HYPOALB) 9.7 mg/dL (8.5-10.1); CREATININE 1.33 mg/dL (0.70-1.30); SODIUM 139 mmol/L (136-145); TOTAL PROTEIN 6.1 g/dL (6.4-8.2); eGFR NON BLACK RACES 57 (>60)
[2020-06-02] MEDS: SINEMET (PLAIN) 25/250 MG PO SCH ×3 (05:19→21:19)
[2020-06-02 06:01] LABS: BAND NEUTROPHILS % 2 % (0-10); PLATELET MORPHOLOGY COMMENT NORMAL (NORMAL)
[2020-06-02 06:02] LABS: HYPOCHROMASIA SLIGHT
[2020-06-02] MEDS: VSL#3 PO SCH (09:00)
[2020-06-02] MEDS: VITAMIN D3 125 mcg (5,000 UNITS) PO SCH (09:00)
[2020-06-02] MEDS: ZINC SULFATE PO SCH ×2 (09:00→21:19)
[2020-06-02] MEDS: COREG TAB 12.5 MG PO SCH ×2 (09:00→21:18)
[2020-06-02] MEDS: PriLOSEC PO SCH ×2 (09:00→21:18)
[2020-06-02] MEDS: SINGULAIR TAB 10 MG PO SCH (09:00)
[2020-06-02] MEDS: PLAQUENIL PO SCH ×2 (09:00→21:18)
[2020-06-02] MEDS: TRICOR TAB 160 MG PO SCH (09:00)
[2020-06-02] MEDS: PULMICORT NEB TX 0.5 MG NEB SCH ×2 (09:00→21:15)
[2020-06-02] MEDS: VITAMIN A PO SCH (09:00)
[2020-06-02] MEDS: ROBITUSSIN DM PO SCH ×4 (09:00→21:19)
[2020-06-02] MEDS: LOVENOX INJ 40 MG SYR SC SCH (09:00)
[2020-06-02] MEDS: MILK OF MAGNESIA PO SCH (09:00)
[2020-06-02] MEDS: TUSSIONEX PENNKINETIC SUSP PO PRN (14:30)
[2020-06-02] MEDS ORDERED: ATIVAN INJ 2 MG VIAL ONE (15:14)
[2020-06-02 15:42] LABS: BILIRUBIN,URINE NEGATIVE (NEGATIVE); BLOOD/HEMOGLOBIN,URINE NEGATIVE (NEGATIVE); GLUCOSE, URINE NEGATIVE (NEGATIVE); KETONES,URINE NEGATIVE (NEGATIVE); LEUKOCYTE ESTERASE ,URINE NEGATIVE (NEGATIVE); NITRITES,URINE NEGATIVE (NEGATIVE); PROTEIN,URINE NEGATIVE (NEGATIVE); UROBILINOGEN,URINE NORMAL (NORMAL)
[2020-06-02 15:47] LABS: APPEARANCE,URINE CLEAR (CLEAR); COLOR,URINE YELLOW (YELLOW)
--- NOTE | 2020-06-02 16:31 | RAD ---
CHEST, 1 VIEWHISTORY: PT C/O SOBStudy: Single view of the chest.Comparison:May 31, 2020Findings:The cardiomediastinal silhouette is normal.Extensive bilateral airspace opacities which are stable to mildly worsened when compared to prior. Osseous structures demonstrate no acute abnormality.IMPRESSION:1. Severe [id number] worsened bilateral airspace opacities.Electronically signed by: MARCE BRADLEY (Jun 02, 2020 16:30:25)
[2020-06-02] MEDS: COLACE CAP 100 MG PO SCH (21:18)
[2020-06-02] MEDS: ATIVAN INJ 2 MG VIAL IVP PRN (22:47)
[2020-06-03] MEDS: ASCORBIC ACID INJ MULTI-DOSE VIAL 1,500 MG in NS 100 ML IV 100 ML IV SCH ×4 (02:35→22:00)
[2020-06-03] MEDS ORDERED: NS 1/2 1000 ML IV 1,000 ML IV ONE (05:23)
[2020-06-03] MEDS: NS 1/2 1000 ML IV 1,000 ML IV SCH (06:11)
[2020-06-03] MEDS: SINEMET (PLAIN) 25/250 MG PO SCH ×3 (06:11→22:00)
[2020-06-03] MEDS: VISTARIL PO PRN (06:12)
[2020-06-03] MEDS: PULMICORT NEB TX 0.5 MG NEB SCH ×2 (08:15→22:00)
[2020-06-03] MEDS: VENTOLIN or PROAIR HFA IN PRN ×2 (08:15→12:40)
[2020-06-03] MEDS: PriLOSEC PO SCH ×2 (09:10→22:00)
[2020-06-03] MEDS: VITAMIN A PO SCH (09:10)
[2020-06-03] MEDS: COREG TAB 12.5 MG PO SCH ×2 (09:11→22:00)
[2020-06-03] MEDS: SINGULAIR TAB 10 MG PO SCH (09:11)
[2020-06-03] MEDS: ZINC SULFATE PO SCH ×2 (09:11→22:00)
[2020-06-03] MEDS: VITAMIN D3 125 mcg (5,000 UNITS) PO SCH (09:12)
[2020-06-03] MEDS: TRICOR TAB 160 MG PO SCH (09:12)
[2020-06-03] MEDS: VSL#3 PO SCH (09:13)
[2020-06-03] MEDS: PLAQUENIL PO SCH ×2 (09:13→21:00)
[2020-06-03] MEDS: ROBITUSSIN DM PO SCH ×4 (09:13→22:00)
[2020-06-03] MEDS: LOVENOX INJ 40 MG SYR SC SCH (09:14)
[2020-06-03] MEDS: MILK OF MAGNESIA PO SCH (09:14)
[2020-06-03] MEDS ORDERED: DECADRON TAB PO SCH (10:00)
[2020-06-03] MEDS: DECADRON INJ IVP SCH (11:04)
[2020-06-03 12:13] LABS: ABG BASE EXCESS 7.2 mmol/L (-2.0-2.0)
[2020-06-03 12:14] LABS: ABG HCO3 31.2 mmol/L (22-26)
[2020-06-03 12:15] LABS: ABG ALLEN TEST POS
[2020-06-03] MEDS ORDERED: XOPENEX 1.25 MG/3 ML NEBULE NEB ONE (20:04)
[2020-06-03] MEDS: COLACE CAP 100 MG PO SCH (22:00)
[2020-06-03] MEDS ORDERED: ACTEMRA IV ONE (23:00)
[2020-06-03] MEDS ORDERED: NS IV ONE (23:00)
[2020-06-04] MEDS ORDERED: NS 100 ML IV 100 ML IV ONE (03:18)
[2020-06-04] MEDS: ASCORBIC ACID INJ MULTI-DOSE VIAL 1,500 MG in NS 100 ML IV 100 ML IV SCH ×4 (03:30→22:00)
[2020-06-04] MEDS: NS 1/2 1000 ML IV 1,000 ML IV SCH ×3 (03:31→10:02)
[2020-06-04] MEDS ORDERED: NS 1/2 1000 ML IV 1,000 ML IV ONE (05:21)
[2020-06-04 06:04] LABS: ALANINE AMINOTRANSFERASE 13 Units/L (12-78); ALKALINE PHOSPHATASE 171 Units/L (46-116); ASPARTATE AMINO TRANSFERASE 44 Units/L (15-37); BLOOD UREA NITROGEN 47 mg/dL (7-18); CALCIUM 8.4 mg/dL (8.5-10.1); CARBON DIOXIDE 28.9 mmol/L (21-32); CHLORIDE 103 mmol/L (98-107); CREATININE 1.88 mg/dL (0.70-1.30); SODIUM 140 mmol/L (136-145); TOTAL PROTEIN 6.4 g/dL (6.4-8.2); eGFR NON BLACK RACES 38 (>60)
[2020-06-04 06:05] LABS: BASOPHILS % (AUTO) 0.3 % (0.2-1.0); EOSINOPHILS % (AUTO) 0.2 % (0.9-2.9); HEMATOCRIT 26.5 % (42.0-54.0); LYMPHOCYTES # (AUTO) 0.3 X10^3/uL (1.3-2.9); LYMPHOCYTES % (AUTO) 2.9 % (21.0-51.0); MEAN CORPUSCULAR HEMOGLOBIN 31.3 pg (27.0-34.0); MEAN CORPUSCULAR HGB CONC 34.1 g/dL (33.0-35.0); MEAN CORPUSCULAR VOLUME 91.7 fL (80.0-100.0); MEAN PLATELET VOLUME 8.8 fL (7.4-11.0); MONOCYTES # (AUTO) 0.2 x10^3/uL (0.3-0.8); MONOCYTES % (AUTO) 2.1 % (0.0-13.0); NEUTROPHILS % (AUTO) 94.5 % (42.0-75.0); PLATELET COUNT 90 X10^3/uL (150.0-450.0); RED BLOOD COUNT 2.89 X10^6/uL (4.7-6.0); RED CELL DISTRIBUTION WIDTH 15.6 % (11.6-16.5); WHITE BLOOD COUNT 8.5 X10^3/uL (3.6-10.0)
[2020-06-04] MEDS: SINEMET (PLAIN) 25/250 MG PO SCH ×3 (06:29→22:00)
[2020-06-04 07:40] LABS: PLATELET MORPHOLOGY COMMENT NORMAL (NORMAL)
[2020-06-04] MEDS: PULMICORT NEB TX 0.5 MG NEB SCH ×2 (08:35→20:00)
[2020-06-04] MEDS: SINGULAIR TAB 10 MG PO SCH (09:00)
[2020-06-04] MEDS: DECADRON INJ IVP SCH (09:00)
[2020-06-04] MEDS: VSL#3 PO SCH (09:00)
[2020-06-04] MEDS: MILK OF MAGNESIA PO SCH (09:12)
[2020-06-04] MEDS: LOVENOX INJ 40 MG SYR SC SCH (09:12)
[2020-06-04] MEDS: PLAQUENIL PO SCH ×2 (09:13→22:00)
[2020-06-04] MEDS: PriLOSEC PO SCH ×2 (09:13→22:00)
[2020-06-04] MEDS: ROBITUSSIN DM PO SCH ×4 (09:13→22:00)
[2020-06-04] MEDS: VITAMIN D3 125 mcg (5,000 UNITS) PO SCH (09:14)
[2020-06-04] MEDS: VITAMIN A PO SCH (09:14)
[2020-06-04] MEDS: ACTEMRA 400 MG in NS 100 ML IV 80 ML IV SCH (09:14)
[2020-06-04] MEDS: ZINC SULFATE PO SCH ×2 (09:14→22:00)
[2020-06-04] MEDS: TRICOR TAB 160 MG PO SCH (09:14)
[2020-06-04] MEDS: COREG TAB 12.5 MG PO SCH ×2 (10:02→22:00)
[2020-06-04] MEDS: COLACE CAP 100 MG PO SCH (22:00)
[2020-06-05] MEDS: ASCORBIC ACID INJ MULTI-DOSE VIAL 1,500 MG in NS 100 ML IV 100 ML IV SCH ×4 (04:00→21:50)
[2020-06-05 05:52] LABS: BASOPHILS % (AUTO) 0.3 % (0.2-1.0); HEMATOCRIT 25.2 % (42.0-54.0); HEMOGLOBIN 8.4 g/dL (13.5-18.0); LYMPHOCYTES # (AUTO) 0.1 X10^3/uL (1.3-2.9); MEAN CORPUSCULAR HEMOGLOBIN 30.7 pg (27.0-34.0); MEAN CORPUSCULAR HGB CONC 33.3 g/dL (33.0-35.0); MEAN CORPUSCULAR VOLUME 92.2 fL (80.0-100.0); MEAN PLATELET VOLUME 9.3 fL (7.4-11.0); MONOCYTES # (AUTO) 0.1 x10^3/uL (0.3-0.8); MONOCYTES % (AUTO) 1.9 % (0.0-13.0); NEUTROPHILS # (AUTO) 6.6 x10^3/uL (2.2-4.8); NEUTROPHILS % (AUTO) 95.8 % (42.0-75.0); PLATELET COUNT 102 X10^3/uL (150.0-450.0); RED BLOOD COUNT 2.73 X10^6/uL (4.7-6.0); RED CELL DISTRIBUTION WIDTH 15.6 % (11.6-16.5); WHITE BLOOD COUNT 6.9 X10^3/uL (3.6-10.0)
[2020-06-05] MEDS: NS 1/2 1000 ML IV 1,000 ML IV SCH ×3 (06:01→13:07)
[2020-06-05] MEDS: SINEMET (PLAIN) 25/250 MG PO SCH ×3 (06:02→21:47)
[2020-06-05 06:04] LABS: ALANINE AMINOTRANSFERASE 13 Units/L (12-78); ALKALINE PHOSPHATASE 153 Units/L (46-116); ASPARTATE AMINO TRANSFERASE 47 Units/L (15-37); BLOOD UREA NITROGEN 50 mg/dL (7-18); CALCIUM 8.3 mg/dL (8.5-10.1); CARBON DIOXIDE 26.3 mmol/L (21-32); CHLORIDE 102 mmol/L (98-107); COR CA(FOR HYPOALB) 9.9 mg/dL (8.5-10.1); CREATININE 1.55 mg/dL (0.70-1.30); SODIUM 137 mmol/L (136-145); TOTAL PROTEIN 6.3 g/dL (6.4-8.2); eGFR NON BLACK RACES 47 (>60)
[2020-06-05] MEDS ORDERED: NS 1/2 1000 ML IV 1,000 ML IV ONE (06:19)
[2020-06-05 06:37] LABS: BAND NEUTROPHILS % 2 % (0-10); PLATELET MORPHOLOGY COMMENT NORMAL (NORMAL)
[2020-06-05] MEDS: PULMICORT NEB TX 0.5 MG NEB SCH ×2 (08:55→22:10)
[2020-06-05] MEDS: VSL#3 PO SCH (09:40)
[2020-06-05] MEDS: DECADRON INJ IVP SCH (09:40)
[2020-06-05] MEDS: SINGULAIR TAB 10 MG PO SCH (09:40)
[2020-06-05] MEDS: PLAQUENIL PO SCH ×2 (09:40→21:45)
[2020-06-05] MEDS: ROBITUSSIN DM PO SCH ×4 (09:40→21:45)
[2020-06-05] MEDS: PriLOSEC PO SCH ×2 (09:40→21:45)
[2020-06-05] MEDS: VITAMIN D3 125 mcg (5,000 UNITS) PO SCH (09:40)
[2020-06-05] MEDS: TRICOR TAB 160 MG PO SCH (09:40)
[2020-06-05] MEDS: VITAMIN A PO SCH (09:40)
[2020-06-05] MEDS: COREG TAB 12.5 MG PO SCH ×2 (09:40→21:45)
[2020-06-05] MEDS: ZINC SULFATE PO SCH ×2 (09:40→21:45)
[2020-06-05] MEDS: LOVENOX INJ 40 MG SYR SC SCH (09:40)
[2020-06-05] MEDS: MILK OF MAGNESIA PO SCH (10:17)
[2020-06-05] MEDS: ACTEMRA 400 MG in NS 100 ML IV 80 ML IV SCH (10:30)
--- NOTE | 2020-06-05 10:46 | RAD ---
HISTORYCOVIDSTUDYAP [id number]/19/2020FINDINGSNormal heart size. There are multiple bilateral patchy airspace densities as before. There is slight interval improvement in aeration of the lungs. There is no evidence for pneumothorax or pleural fluid.IMPRESSIONPersistent bilateral infiltrates/pneumonia with slight apparent improvement since 3 days prior.Electronically signed by: LISHA BATISTA (Jun 05, 2020 10:45:42)
[2020-06-05] MEDS: LR 1000 ML IV 1,000 ML IV SCH ×2 (11:00→23:55)
[2020-06-05] MEDS ORDERED: NS 250 ML IV 250 ML IV ONE (14:44)
[2020-06-05] MEDS: COLACE CAP 100 MG PO SCH (21:45)
[2020-06-05] MEDS: LIBRIUM PO PRN (21:52)
[2020-06-05] MEDS: NORCO 5/325 MG TAB PO PRN (22:00)
[2020-06-06] MEDS ORDERED: NS 100 ML IV 100 ML IV ONE ×2 (00:40→08:44)
[2020-06-06] MEDS: LR 1000 ML IV 1,000 ML IV SCH ×3 (01:50→14:48)
[2020-06-06] MEDS ORDERED: ASCORBIC ACID INJ MULTI-DOSE VIAL IV ONE (02:06)
[2020-06-06] MEDS ORDERED: NS 250 ML IV 250 ML IV ONE (02:06)
[2020-06-06] MEDS: ASCORBIC ACID INJ MULTI-DOSE VIAL 1,500 MG in NS 100 ML IV 100 ML IV SCH ×2 (02:10→10:03)
[2020-06-06] MEDS: NS 1/2 1000 ML IV 1,000 ML IV SCH (03:50)
[2020-06-06] MEDS: SINEMET (PLAIN) 25/250 MG PO SCH ×3 (05:30→21:54)
[2020-06-06 08:40] LABS: BASOPHILS % (AUTO) 0 % (0.2-1.0); EOSINOPHILS % (AUTO) 0.1 % (0.9-2.9); HEMATOCRIT 32.7 % (42.0-54.0); HEMOGLOBIN 10.9 g/dL (13.5-18.0); LYMPHOCYTES # (AUTO) 0.2 X10^3/uL (1.3-2.9); MEAN CORPUSCULAR HEMOGLOBIN 30.3 pg (27.0-34.0); MEAN CORPUSCULAR HGB CONC 33.3 g/dL (33.0-35.0); MEAN CORPUSCULAR VOLUME 91.1 fL (80.0-100.0); MEAN PLATELET VOLUME 9.3 fL (7.4-11.0); MONOCYTES # (AUTO) 0.2 x10^3/uL (0.3-0.8); MONOCYTES % (AUTO) 2.5 % (0.0-13.0); NEUTROPHILS # (AUTO) 6.5 x10^3/uL (2.2-4.8); NEUTROPHILS % (AUTO) 94.4 % (42.0-75.0); PLATELET COUNT 86 X10^3/uL (150.0-450.0); RED BLOOD COUNT 3.59 X10^6/uL (4.7-6.0); RED CELL DISTRIBUTION WIDTH 15.6 % (11.6-16.5); WHITE BLOOD COUNT 6.9 X10^3/uL (3.6-10.0)
[2020-06-06 08:50] LABS: ALANINE AMINOTRANSFERASE 12 Units/L (12-78); ALBUMIN 2.1 g/dL (3.4-5.0); ALKALINE PHOSPHATASE 146 Units/L (46-116); ASPARTATE AMINO TRANSFERASE 37 Units/L (15-37); BLOOD UREA NITROGEN 48 mg/dL (7-18); CALCIUM 8.4 mg/dL (8.5-10.1); CARBON DIOXIDE 30.2 mmol/L (21-32); CHLORIDE 103 mmol/L (98-107); COR CA(FOR HYPOALB) 9.9 mg/dL (8.5-10.1); COR NA(FOR HYPERGLY) 140 mmol/L (136-145); SODIUM 139 mmol/L (136-145); TOTAL PROTEIN 6.1 g/dL (6.4-8.2); eGFR NON BLACK RACES 53 (>60)
[2020-06-06] MEDS: PULMICORT NEB TX 0.5 MG NEB SCH ×2 (09:15→21:10)
[2020-06-06 09:24] LABS: BAND NEUTROPHILS % 4 % (0-10); PLATELET MORPHOLOGY COMMENT NORMAL (NORMAL)
[2020-06-06] MEDS: ZINC SULFATE PO SCH ×2 (09:57→21:42)
[2020-06-06] MEDS: PriLOSEC PO SCH ×2 (09:57→21:45)
[2020-06-06] MEDS: DECADRON INJ IVP SCH (09:59)
[2020-06-06] MEDS: COREG TAB 12.5 MG PO SCH ×2 (09:59→21:45)
[2020-06-06] MEDS: VITAMIN D3 125 mcg (5,000 UNITS) PO SCH (09:59)
[2020-06-06] MEDS: LOVENOX INJ 40 MG SYR SC SCH (10:00)
[2020-06-06] MEDS: PLAQUENIL PO SCH ×2 (10:00→21:45)
[2020-06-06] MEDS: SINGULAIR TAB 10 MG PO SCH (10:00)
[2020-06-06] MEDS: TRICOR TAB 160 MG PO SCH (10:01)
[2020-06-06] MEDS: MILK OF MAGNESIA PO SCH (10:01)
[2020-06-06] MEDS: ROBITUSSIN DM PO SCH ×4 (10:01→21:48)
[2020-06-06] MEDS: VITAMIN A PO SCH (10:02)
[2020-06-06] MEDS: VSL#3 PO SCH (10:03)
[2020-06-06] MEDS: ASCORBIC ACID INJ MULTI-DOSE VIAL 1,500 MG in NS 50 ML IV 50 ML IV SCH ×2 (14:47→21:45)
[2020-06-06] MEDS: NORCO 5/325 MG TAB PO PRN (16:00)
[2020-06-06] MEDS: TUSSIONEX PENNKINETIC SUSP PO PRN (21:40)
[2020-06-06] MEDS: COLACE CAP 100 MG PO SCH (21:45)
[2020-06-06] MEDS: LIBRIUM PO PRN (21:45)
[2020-06-07] MEDS: ASCORBIC ACID INJ MULTI-DOSE VIAL 1,500 MG in NS 50 ML IV 50 ML IV SCH ×4 (03:15→22:58)
[2020-06-07] MEDS: LR 1000 ML IV 1,000 ML IV SCH ×3 (03:20→14:02)
[2020-06-07 06:07] LABS: BASOPHILS % (AUTO) 0.3 % (0.2-1.0); EOSINOPHILS % (AUTO) 0.1 % (0.9-2.9); HEMATOCRIT 33.2 % (42.0-54.0); HEMOGLOBIN 11.1 g/dL (13.5-18.0); LYMPHOCYTES # (AUTO) 0.2 X10^3/uL (1.3-2.9); LYMPHOCYTES % (AUTO) 3.4 % (21.0-51.0); MEAN CORPUSCULAR HEMOGLOBIN 30.4 pg (27.0-34.0); MEAN CORPUSCULAR HGB CONC 33.4 g/dL (33.0-35.0); MEAN PLATELET VOLUME 9.6 fL (7.4-11.0); MONOCYTES # (AUTO) 0.2 x10^3/uL (0.3-0.8); MONOCYTES % (AUTO) 3.6 % (0.0-13.0); NEUTROPHILS # (AUTO) 5.2 x10^3/uL (2.2-4.8); NEUTROPHILS % (AUTO) 92.6 % (42.0-75.0); PLATELET COUNT 94 X10^3/uL (150.0-450.0); RED BLOOD COUNT 3.65 X10^6/uL (4.7-6.0); RED CELL DISTRIBUTION WIDTH 15.8 % (11.6-16.5); WHITE BLOOD COUNT 5.6 X10^3/uL (3.6-10.0)
[2020-06-07] MEDS: SINEMET (PLAIN) 25/250 MG PO SCH ×3 (06:30→22:59)
[2020-06-07 06:52] LABS: ALANINE AMINOTRANSFERASE 11 Units/L (12-78); ALBUMIN 2.2 g/dL (3.4-5.0); ALKALINE PHOSPHATASE 131 Units/L (46-116); ASPARTATE AMINO TRANSFERASE 33 Units/L (15-37); BLOOD UREA NITROGEN 40 mg/dL (7-18); CALCIUM 8.5 mg/dL (8.5-10.1); CARBON DIOXIDE 30.5 mmol/L (21-32); CHLORIDE 103 mmol/L (98-107); COR CA(FOR HYPOALB) 9.9 mg/dL (8.5-10.1); SODIUM 140 mmol/L (136-145); TOTAL PROTEIN 5.9 g/dL (6.4-8.2); eGFR NON BLACK RACES 53 (>60)
[2020-06-07 08:03] LABS: BAND NEUTROPHILS % 2 % (0-10); PLATELET MORPHOLOGY COMMENT NORMAL (NORMAL)
[2020-06-07] MEDS: PULMICORT NEB TX 0.5 MG NEB SCH ×2 (08:45→21:11)
[2020-06-07] MEDS: COREG TAB 12.5 MG PO SCH ×3 (09:19→23:02)
[2020-06-07] MEDS: LOVENOX INJ 40 MG SYR SC SCH (09:19)
[2020-06-07] MEDS: DECADRON INJ IVP SCH (09:19)
[2020-06-07] MEDS: MILK OF MAGNESIA PO SCH (09:20)
[2020-06-07] MEDS: PLAQUENIL PO SCH (09:20)
[2020-06-07] MEDS: ROBITUSSIN DM PO SCH ×4 (09:21→22:59)
[2020-06-07] MEDS: PriLOSEC PO SCH ×2 (09:21→23:00)
[2020-06-07] MEDS: TRICOR TAB 160 MG PO SCH (09:22)
[2020-06-07] MEDS: SINGULAIR TAB 10 MG PO SCH (09:22)
[2020-06-07] MEDS: VITAMIN A PO SCH (09:23)
[2020-06-07] MEDS: ZINC SULFATE PO SCH ×2 (09:24→23:02)
[2020-06-07] MEDS: VITAMIN D3 125 mcg (5,000 UNITS) PO SCH (09:24)
[2020-06-07] MEDS: VSL#3 PO SCH (09:24)
[2020-06-07] MEDS: COLACE CAP 100 MG PO SCH (23:00)
[2020-06-08] MEDS: ASCORBIC ACID INJ MULTI-DOSE VIAL 1,500 MG in NS 50 ML IV 50 ML IV SCH ×4 (03:51→21:02)
[2020-06-08] MEDS: LR 1000 ML IV 1,000 ML IV SCH (03:53)
[2020-06-08] MEDS: SINEMET (PLAIN) 25/250 MG PO SCH ×3 (05:26→21:07)
[2020-06-08 06:52] LABS: BASOPHILS % (AUTO) 0.2 % (0.2-1.0); EOSINOPHILS % (AUTO) 1.1 % (0.9-2.9); HEMATOCRIT 35.6 % (42.0-54.0); HEMOGLOBIN 11.8 g/dL (13.5-18.0); LYMPHOCYTES # (AUTO) 0.2 X10^3/uL (1.3-2.9); LYMPHOCYTES % (AUTO) 5.7 % (21.0-51.0); MEAN CORPUSCULAR HEMOGLOBIN 30.2 pg (27.0-34.0); MEAN CORPUSCULAR HGB CONC 33.2 g/dL (33.0-35.0); MONOCYTES # (AUTO) 0.1 x10^3/uL (0.3-0.8); MONOCYTES % (AUTO) 2.3 % (0.0-13.0); NEUTROPHILS # (AUTO) 3.2 x10^3/uL (2.2-4.8); NEUTROPHILS % (AUTO) 90.7 % (42.0-75.0); PLATELET COUNT 80 X10^3/uL (150.0-450.0); RED BLOOD COUNT 3.91 X10^6/uL (4.7-6.0); RED CELL DISTRIBUTION WIDTH 15.3 % (11.6-16.5); WHITE BLOOD COUNT 3.5 X10^3/uL (3.6-10.0)
[2020-06-08 07:10] LABS: ALANINE AMINOTRANSFERASE 12 Units/L (12-78); ALBUMIN 2.2 g/dL (3.4-5.0); ALKALINE PHOSPHATASE 124 Units/L (46-116); ASPARTATE AMINO TRANSFERASE 36 Units/L (15-37); BLOOD UREA NITROGEN 36 mg/dL (7-18); CALCIUM 8.4 mg/dL (8.5-10.1); CARBON DIOXIDE 33.8 mmol/L (21-32); CHLORIDE 102 mmol/L (98-107); COR CA(FOR HYPOALB) 9.8 mg/dL (8.5-10.1); CREATININE 1.21 mg/dL (0.70-1.30); SODIUM 139 mmol/L (136-145); TOTAL PROTEIN 5.8 g/dL (6.4-8.2); eGFR NON BLACK RACES > 60 (>60)
[2020-06-08 08:23] LABS: BAND NEUTROPHILS % 2 % (0-10); PLATELET MORPHOLOGY COMMENT NORMAL (NORMAL)
[2020-06-08] MEDS: DECADRON INJ IVP SCH (09:25)
[2020-06-08] MEDS: VSL#3 PO SCH (09:30)
[2020-06-08] MEDS: VITAMIN A PO SCH (09:30)
[2020-06-08] MEDS: SINGULAIR TAB 10 MG PO SCH (09:30)
[2020-06-08] MEDS: ZINC SULFATE PO SCH ×2 (09:30→21:07)
[2020-06-08] MEDS: VITAMIN D3 125 mcg (5,000 UNITS) PO SCH (09:30)
[2020-06-08] MEDS: TRICOR TAB 160 MG PO SCH (09:30)
[2020-06-08] MEDS: PriLOSEC PO SCH ×2 (09:30→21:04)
[2020-06-08] MEDS: PULMICORT NEB TX 0.5 MG NEB SCH ×2 (09:45→20:50)
[2020-06-08] MEDS: MILK OF MAGNESIA PO SCH (10:13)
[2020-06-08] MEDS: ROBITUSSIN DM PO SCH ×4 (10:14→21:08)
[2020-06-08] MEDS ORDERED: ZESTRIL TAB 20 MG ONE (11:53)
[2020-06-08] MEDS: ZESTRIL TAB 20 MG PO SCH (12:11)
[2020-06-08] MEDS: ATIVAN INJ 2 MG VIAL IVP PRN (14:41)
[2020-06-08] MEDS: COREG TAB 12.5 MG PO SCH (21:05)
[2020-06-08] MEDS: COLACE CAP 100 MG PO SCH (21:07)
[2020-06-09] MEDS: ASCORBIC ACID INJ MULTI-DOSE VIAL 1,500 MG in NS 50 ML IV 50 ML IV SCH ×4 (03:46→20:31)
[2020-06-09] MEDS: LR 1000 ML IV 1,000 ML IV SCH ×3 (04:20→17:42)
[2020-06-09 05:04] LABS: BASOPHILS % (AUTO) 0.2 % (0.2-1.0); EOSINOPHILS % (AUTO) 0.4 % (0.9-2.9); HEMATOCRIT 35.7 % (42.0-54.0); HEMOGLOBIN 11.8 g/dL (13.5-18.0); LYMPHOCYTES # (AUTO) 0.2 X10^3/uL (1.3-2.9); LYMPHOCYTES % (AUTO) 4.7 % (21.0-51.0); MEAN CORPUSCULAR HEMOGLOBIN 30.1 pg (27.0-34.0); MEAN CORPUSCULAR VOLUME 91.1 fL (80.0-100.0); MEAN PLATELET VOLUME 9.3 fL (7.4-11.0); MONOCYTES # (AUTO) 0.1 x10^3/uL (0.3-0.8); MONOCYTES % (AUTO) 2.8 % (0.0-13.0); NEUTROPHILS # (AUTO) 3.8 x10^3/uL (2.2-4.8); NEUTROPHILS % (AUTO) 91.9 % (42.0-75.0); PLATELET COUNT 94 X10^3/uL (150.0-450.0); RED BLOOD COUNT 3.91 X10^6/uL (4.7-6.0); RED CELL DISTRIBUTION WIDTH 14.8 % (11.6-16.5); WHITE BLOOD COUNT 4.1 X10^3/uL (3.6-10.0)
[2020-06-09 05:09] LABS: ALANINE AMINOTRANSFERASE 15 Units/L (12-78); ALBUMIN 2.2 g/dL (3.4-5.0); ALKALINE PHOSPHATASE 114 Units/L (46-116); ASPARTATE AMINO TRANSFERASE 30 Units/L (15-37); BLOOD UREA NITROGEN 32 mg/dL (7-18); CALCIUM 8.4 mg/dL (8.5-10.1); CARBON DIOXIDE 36.7 mmol/L (21-32); CHLORIDE 101 mmol/L (98-107); COR CA(FOR HYPOALB) 9.8 mg/dL (8.5-10.1); CREATININE 1.06 mg/dL (0.70-1.30); SODIUM 138 mmol/L (136-145); TOTAL PROTEIN 5.4 g/dL (6.4-8.2); eGFR NON BLACK RACES > 60 (>60)
[2020-06-09 06:17] LABS: PLATELET MORPHOLOGY COMMENT NORMAL (NORMAL)
[2020-06-09] MEDS: SINEMET (PLAIN) 25/250 MG PO SCH ×2 (06:57→13:58)
[2020-06-09] MEDS: PULMICORT NEB TX 0.5 MG NEB SCH ×2 (08:20→21:00)
[2020-06-09] MEDS: DECADRON INJ IVP SCH (08:31)
[2020-06-09] MEDS: COREG TAB 12.5 MG PO SCH ×2 (08:31→20:52)
[2020-06-09] MEDS: MILK OF MAGNESIA PO SCH (08:31)
[2020-06-09] MEDS: ECOTRIN TAB 325 MG PO SCH (08:31)
[2020-06-09] MEDS: PriLOSEC PO SCH ×2 (08:32→20:52)
[2020-06-09] MEDS: TRICOR TAB 160 MG PO SCH (08:32)
[2020-06-09] MEDS: SINGULAIR TAB 10 MG PO SCH (08:32)
[2020-06-09] MEDS: ROBITUSSIN DM PO SCH ×4 (08:32→20:52)
[2020-06-09] MEDS: ZESTRIL TAB 20 MG PO SCH (08:33)
[2020-06-09] MEDS: VITAMIN A PO SCH (08:33)
[2020-06-09] MEDS: VSL#3 PO SCH (08:33)
[2020-06-09] MEDS: VITAMIN D3 125 mcg (5,000 UNITS) PO SCH (08:33)
[2020-06-09] MEDS: ZINC SULFATE PO SCH ×2 (08:34→20:52)
[2020-06-09] MEDS: COLACE CAP 100 MG PO SCH (20:51)
[2020-06-10] MEDS: SINEMET (PLAIN) 25/250 MG PO SCH ×4 (00:10→21:47)
[2020-06-10] MEDS: LR 1000 ML IV 1,000 ML IV SCH ×4 (01:26→20:53)
[2020-06-10] MEDS: ASCORBIC ACID INJ MULTI-DOSE VIAL 1,500 MG in NS 50 ML IV 50 ML IV SCH ×4 (02:38→20:54)
[2020-06-10 04:41] LABS: BASOPHILS % (AUTO) 0.2 % (0.2-1.0); EOSINOPHILS % (AUTO) 0.6 % (0.9-2.9); HEMATOCRIT 36.8 % (42.0-54.0); HEMOGLOBIN 12.1 g/dL (13.5-18.0); LYMPHOCYTES # (AUTO) 0.2 X10^3/uL (1.3-2.9); LYMPHOCYTES % (AUTO) 3.1 % (21.0-51.0); MEAN CORPUSCULAR HEMOGLOBIN 30.1 pg (27.0-34.0); MEAN CORPUSCULAR HGB CONC 32.9 g/dL (33.0-35.0); MEAN CORPUSCULAR VOLUME 91.4 fL (80.0-100.0); MEAN PLATELET VOLUME 9.2 fL (7.4-11.0); MONOCYTES # (AUTO) 0.1 x10^3/uL (0.3-0.8); MONOCYTES % (AUTO) 2.5 % (0.0-13.0); NEUTROPHILS # (AUTO) 5.4 x10^3/uL (2.2-4.8); NEUTROPHILS % (AUTO) 93.6 % (42.0-75.0); PLATELET COUNT 106 X10^3/uL (150.0-450.0); RED BLOOD COUNT 4.03 X10^6/uL (4.7-6.0); RED CELL DISTRIBUTION WIDTH 14.6 % (11.6-16.5); WHITE BLOOD COUNT 5.8 X10^3/uL (3.6-10.0)
[2020-06-10 04:47] LABS: ALANINE AMINOTRANSFERASE 17 Units/L (12-78); ALBUMIN 2.2 g/dL (3.4-5.0); ALKALINE PHOSPHATASE 107 Units/L (46-116); ASPARTATE AMINO TRANSFERASE 36 Units/L (15-37); BLOOD UREA NITROGEN 32 mg/dL (7-18); CALCIUM 8.3 mg/dL (8.5-10.1); CARBON DIOXIDE 33.1 mmol/L (21-32); CHLORIDE 100 mmol/L (98-107); COR CA(FOR HYPOALB) 9.7 mg/dL (8.5-10.1); SODIUM 137 mmol/L (136-145); TOTAL PROTEIN 5.3 g/dL (6.4-8.2); eGFR NON BLACK RACES > 60 (>60)
[2020-06-10 05:03] LABS: PLATELET MORPHOLOGY COMMENT NORMAL (NORMAL)
[2020-06-10] MEDS: DECADRON INJ IVP SCH (09:16)
[2020-06-10] MEDS: ECOTRIN TAB 325 MG PO SCH (09:16)
[2020-06-10] MEDS: COREG TAB 12.5 MG PO SCH ×2 (09:16→20:55)
[2020-06-10] MEDS: ROBITUSSIN DM PO SCH ×5 (09:17→20:55)
[2020-06-10] MEDS: ZINC SULFATE PO SCH ×2 (09:17→20:55)
[2020-06-10] MEDS: MILK OF MAGNESIA PO SCH (09:17)
[2020-06-10] MEDS: PriLOSEC PO SCH ×2 (09:17→20:55)
[2020-06-10] MEDS: SINGULAIR TAB 10 MG PO SCH (09:17)
[2020-06-10] MEDS: VITAMIN D3 125 mcg (5,000 UNITS) PO SCH (09:18)
[2020-06-10] MEDS: TRICOR TAB 160 MG PO SCH (09:18)
[2020-06-10] MEDS: ZESTRIL TAB 20 MG PO SCH (09:18)
[2020-06-10] MEDS: VITAMIN A PO SCH (09:18)
[2020-06-10] MEDS: VSL#3 PO SCH (09:18)
[2020-06-10] MEDS: PULMICORT NEB TX 0.5 MG NEB SCH ×2 (09:25→21:10)
[2020-06-10] MEDS ORDERED: VASOTEC INJ 2.5 MG VIAL ONE (15:33)
[2020-06-10] MEDS: VASOTEC INJ 2.5 MG VIAL IVP PRN ×2 (15:56→19:55)
[2020-06-10] MEDS: COLACE CAP 100 MG PO SCH (20:54)
[2020-06-11] MEDS: VASOTEC INJ 2.5 MG VIAL IVP PRN (02:10)
[2020-06-11] MEDS: ASCORBIC ACID INJ MULTI-DOSE VIAL 1,500 MG in NS 50 ML IV 50 ML IV SCH ×4 (02:55→21:55)
[2020-06-11] MEDS: SINEMET (PLAIN) 25/250 MG PO SCH ×3 (05:14→22:32)
[2020-06-11 05:20] LABS: BASOPHILS % (AUTO) 0.1 % (0.2-1.0); EOSINOPHILS # (AUTO) 0.1 x10^3/uL (0.0-0.2); EOSINOPHILS % (AUTO) 1.1 % (0.9-2.9); HEMOGLOBIN 13.1 g/dL (13.5-18.0); LYMPHOCYTES # (AUTO) 0.2 X10^3/uL (1.3-2.9); LYMPHOCYTES % (AUTO) 3.1 % (21.0-51.0); MEAN CORPUSCULAR HEMOGLOBIN 30.1 pg (27.0-34.0); MEAN CORPUSCULAR HGB CONC 33.5 g/dL (33.0-35.0); MEAN CORPUSCULAR VOLUME 89.8 fL (80.0-100.0); MEAN PLATELET VOLUME 8.8 fL (7.4-11.0); MONOCYTES # (AUTO) 0.1 x10^3/uL (0.3-0.8); MONOCYTES % (AUTO) 1.5 % (0.0-13.0); NEUTROPHILS # (AUTO) 5.6 x10^3/uL (2.2-4.8); NEUTROPHILS % (AUTO) 94.2 % (42.0-75.0); PLATELET COUNT 99 X10^3/uL (150.0-450.0); RED BLOOD COUNT 4.34 X10^6/uL (4.7-6.0); RED CELL DISTRIBUTION WIDTH 15.1 % (11.6-16.5)
[2020-06-11 05:36] LABS: ALANINE AMINOTRANSFERASE 16 Units/L (12-78); ALBUMIN 2.3 g/dL (3.4-5.0); ALKALINE PHOSPHATASE 110 Units/L (46-116); ASPARTATE AMINO TRANSFERASE 40 Units/L (15-37); BLOOD UREA NITROGEN 30 mg/dL (7-18); CALCIUM 8.3 mg/dL (8.5-10.1); CARBON DIOXIDE 32.9 mmol/L (21-32); CHLORIDE 99 mmol/L (98-107); COR CA(FOR HYPOALB) 9.7 mg/dL (8.5-10.1); CREATININE 0.95 mg/dL (0.70-1.30); SODIUM 135 mmol/L (136-145); TOTAL PROTEIN 5.5 g/dL (6.4-8.2); eGFR NON BLACK RACES > 60 (>60)
[2020-06-11 06:13] LABS: BAND NEUTROPHILS % 5 % (0-10); PLATELET MORPHOLOGY COMMENT NORMAL (NORMAL)
[2020-06-11] MEDS: PULMICORT NEB TX 0.5 MG NEB SCH ×2 (09:35→21:00)
[2020-06-11] MEDS: DUONEB 0.5 MG/3 MG (3 mL) NEB SCH ×4 (09:35→21:00)
[2020-06-11] MEDS: COREG TAB 12.5 MG PO SCH ×2 (09:40→21:57)
[2020-06-11] MEDS: DECADRON INJ IVP SCH (09:41)
[2020-06-11] MEDS: LR 1000 ML IV 1,000 ML IV SCH ×2 (10:05→22:31)
[2020-06-11] MEDS: ECOTRIN TAB 325 MG PO SCH (10:05)
[2020-06-11] MEDS: MILK OF MAGNESIA PO SCH (10:06)
[2020-06-11] MEDS: PriLOSEC PO SCH ×2 (10:06→21:58)
[2020-06-11] MEDS: SINGULAIR TAB 10 MG PO SCH (10:07)
[2020-06-11] MEDS: ROBITUSSIN DM PO SCH ×4 (10:07→21:58)
[2020-06-11] MEDS: VITAMIN A PO SCH (10:08)
[2020-06-11] MEDS: TRICOR TAB 160 MG PO SCH (10:08)
[2020-06-11] MEDS: VITAMIN D3 125 mcg (5,000 UNITS) PO SCH (10:09)
[2020-06-11] MEDS: ZINC SULFATE PO SCH ×2 (10:10→21:58)
[2020-06-11] MEDS: ZESTRIL TAB 20 MG PO SCH (10:10)
[2020-06-11] MEDS: VSL#3 PO SCH (10:10)
[2020-06-11] MEDS: COLACE CAP 100 MG PO SCH (21:57)
[2020-06-11] MEDS ORDERED: VASOTEC INJ 2.5 MG VIAL ONE (22:13)
[2020-06-11] MEDS: VASOTEC INJ 2.5 MG VIAL IVP SCH (22:20)
[2020-06-12] MEDS: ASCORBIC ACID INJ MULTI-DOSE VIAL 1,500 MG in NS 50 ML IV 50 ML IV SCH ×4 (03:00→22:00)
[2020-06-12 05:36] LABS: BASOPHILS % (AUTO) 0.1 % (0.2-1.0); EOSINOPHILS # (AUTO) 0.1 x10^3/uL (0.0-0.2); EOSINOPHILS % (AUTO) 0.8 % (0.9-2.9); HEMATOCRIT 38.3 % (42.0-54.0); LYMPHOCYTES # (AUTO) 0.2 X10^3/uL (1.3-2.9); LYMPHOCYTES % (AUTO) 3.5 % (21.0-51.0); MEAN CORPUSCULAR HEMOGLOBIN 30.3 pg (27.0-34.0); MEAN CORPUSCULAR HGB CONC 33.8 g/dL (33.0-35.0); MEAN CORPUSCULAR VOLUME 89.5 fL (80.0-100.0); MEAN PLATELET VOLUME 8.5 fL (7.4-11.0); MONOCYTES # (AUTO) 0.1 x10^3/uL (0.3-0.8); MONOCYTES % (AUTO) 1.5 % (0.0-13.0); NEUTROPHILS # (AUTO) 6.3 x10^3/uL (2.2-4.8); NEUTROPHILS % (AUTO) 94.1 % (42.0-75.0); PLATELET COUNT 100 X10^3/uL (150.0-450.0); RED BLOOD COUNT 4.27 X10^6/uL (4.7-6.0); RED CELL DISTRIBUTION WIDTH 14.8 % (11.6-16.5); WHITE BLOOD COUNT 6.7 X10^3/uL (3.6-10.0)
[2020-06-12 05:47] LABS: ALANINE AMINOTRANSFERASE 16 Units/L (12-78); ALBUMIN 2.4 g/dL (3.4-5.0); ALKALINE PHOSPHATASE 113 Units/L (46-116); ASPARTATE AMINO TRANSFERASE 44 Units/L (15-37); BLOOD UREA NITROGEN 28 mg/dL (7-18); CALCIUM 8.2 mg/dL (8.5-10.1); CHLORIDE 98 mmol/L (98-107); COR CA(FOR HYPOALB) 9.5 mg/dL (8.5-10.1); CREATININE 0.93 mg/dL (0.70-1.30); SODIUM 135 mmol/L (136-145); TOTAL PROTEIN 5.5 g/dL (6.4-8.2); eGFR NON BLACK RACES > 60 (>60)
[2020-06-12 06:01] LABS: BAND NEUTROPHILS % 5 % (0-10)
[2020-06-12 06:02] LABS: PLATELET MORPHOLOGY COMMENT NORMAL (NORMAL)
[2020-06-12] MEDS: SINEMET (PLAIN) 25/250 MG PO SCH ×3 (06:35→23:09)
[2020-06-12] MEDS: LR 1000 ML IV 1,000 ML IV SCH ×2 (06:51→14:52)
[2020-06-12] MEDS: VITAMIN D3 125 mcg (5,000 UNITS) PO SCH (08:09)
[2020-06-12] MEDS: VITAMIN A PO SCH (08:10)
[2020-06-12] MEDS: ROBITUSSIN DM PO SCH ×4 (08:10→23:08)
[2020-06-12] MEDS: ECOTRIN TAB 325 MG PO SCH (08:10)
[2020-06-12] MEDS: ZESTRIL TAB 20 MG PO SCH (08:10)
[2020-06-12] MEDS: ZINC SULFATE PO SCH ×2 (08:10→23:09)
[2020-06-12] MEDS: SINGULAIR TAB 10 MG PO SCH (08:11)
[2020-06-12] MEDS: VSL#3 PO SCH (08:11)
[2020-06-12] MEDS: TRICOR TAB 160 MG PO SCH (08:11)
[2020-06-12] MEDS: PriLOSEC PO SCH ×2 (08:12→23:07)
[2020-06-12] MEDS: COREG TAB 12.5 MG PO SCH ×2 (08:12→23:07)
[2020-06-12] MEDS: MILK OF MAGNESIA PO SCH (08:12)
[2020-06-12] MEDS: VENTOLIN or PROAIR HFA IN PRN (08:20)
[2020-06-12] MEDS: PULMICORT NEB TX 0.5 MG NEB SCH ×2 (08:20→21:30)
[2020-06-12] MEDS: VASOTEC INJ 2.5 MG VIAL IVP SCH ×4 (08:28→22:20)
[2020-06-12] MEDS: DECADRON INJ IVP SCH (08:31)
[2020-06-12] MEDS: DUONEB 0.5 MG/3 MG (3 mL) NEB SCH ×4 (09:15→21:30)
[2020-06-12] MEDS: COLACE CAP 100 MG PO SCH (22:50)
[2020-06-13] MEDS: LR 1000 ML IV 1,000 ML IV SCH ×3 (00:40→18:36)
[2020-06-13] MEDS: ASCORBIC ACID INJ MULTI-DOSE VIAL 1,500 MG in NS 50 ML IV 50 ML IV SCH ×4 (03:15→21:47)
[2020-06-13 06:14] LABS: BASOPHILS % (AUTO) 0.2 % (0.2-1.0); EOSINOPHILS # (AUTO) 0.1 x10^3/uL (0.0-0.2); EOSINOPHILS % (AUTO) 1.5 % (0.9-2.9); HEMATOCRIT 37.5 % (42.0-54.0); HEMOGLOBIN 12.7 g/dL (13.5-18.0); LYMPHOCYTES # (AUTO) 0.2 X10^3/uL (1.3-2.9); MEAN CORPUSCULAR HEMOGLOBIN 30.2 pg (27.0-34.0); MEAN CORPUSCULAR HGB CONC 33.8 g/dL (33.0-35.0); MEAN CORPUSCULAR VOLUME 89.5 fL (80.0-100.0); MEAN PLATELET VOLUME 8.9 fL (7.4-11.0); MONOCYTES # (AUTO) 0.1 x10^3/uL (0.3-0.8); MONOCYTES % (AUTO) 1.9 % (0.0-13.0); NEUTROPHILS # (AUTO) 5.5 x10^3/uL (2.2-4.8); NEUTROPHILS % (AUTO) 92.4 % (42.0-75.0); PLATELET COUNT 113 X10^3/uL (150.0-450.0); RED BLOOD COUNT 4.19 X10^6/uL (4.7-6.0); RED CELL DISTRIBUTION WIDTH 14.8 % (11.6-16.5); WHITE BLOOD COUNT 5.9 X10^3/uL (3.6-10.0)
[2020-06-13 06:44] LABS: ALANINE AMINOTRANSFERASE 19 Units/L (12-78); ALBUMIN 2.5 g/dL (3.4-5.0); ALKALINE PHOSPHATASE 104 Units/L (46-116); ASPARTATE AMINO TRANSFERASE 41 Units/L (15-37); BLOOD UREA NITROGEN 24 mg/dL (7-18); CALCIUM 8.1 mg/dL (8.5-10.1); CARBON DIOXIDE 30.5 mmol/L (21-32); CHLORIDE 97 mmol/L (98-107); COR CA(FOR HYPOALB) 9.3 mg/dL (8.5-10.1); CREATININE 0.85 mg/dL (0.70-1.30); SODIUM 136 mmol/L (136-145); TOTAL PROTEIN 5.3 g/dL (6.4-8.2); eGFR NON BLACK RACES > 60 (>60)
[2020-06-13 07:00] LABS: BAND NEUTROPHILS % 10 % (0-10); PLATELET MORPHOLOGY COMMENT NORMAL (NORMAL)
[2020-06-13] MEDS: SINEMET (PLAIN) 25/250 MG PO SCH ×3 (07:59→21:49)
[2020-06-13] MEDS: PriLOSEC PO SCH ×2 (08:40→21:48)
[2020-06-13] MEDS: COREG TAB 12.5 MG PO SCH ×2 (08:40→21:48)
[2020-06-13] MEDS: ECOTRIN TAB 325 MG PO SCH (08:40)
[2020-06-13] MEDS: MILK OF MAGNESIA PO SCH (08:40)
[2020-06-13] MEDS: ROBITUSSIN DM PO SCH ×4 (08:41→21:48)
[2020-06-13] MEDS: VITAMIN A PO SCH (08:41)
[2020-06-13] MEDS: TRICOR TAB 160 MG PO SCH (08:41)
[2020-06-13] MEDS: SINGULAIR TAB 10 MG PO SCH (08:41)
[2020-06-13] MEDS: VITAMIN D3 125 mcg (5,000 UNITS) PO SCH (08:42)
[2020-06-13] MEDS: ZESTRIL TAB 20 MG PO SCH (08:42)
[2020-06-13] MEDS: VSL#3 PO SCH (08:42)
[2020-06-13] MEDS: ZINC SULFATE PO SCH ×2 (08:43→21:49)
[2020-06-13] MEDS: DECADRON INJ IVP SCH (08:56)
[2020-06-13] MEDS: VASOTEC INJ 2.5 MG VIAL IVP SCH ×4 (08:56→21:50)
[2020-06-13] MEDS: DUONEB 0.5 MG/3 MG (3 mL) NEB SCH ×4 (09:35→21:40)
[2020-06-13] MEDS: PULMICORT NEB TX 0.5 MG NEB SCH ×2 (09:35→21:40)
[2020-06-13] MEDS ORDERED: CARDIZEM INJ 125 MG VIAL 125 MG in NS 100 ML IV 100 ML IV PRN (17:41)
[2020-06-13] MEDS ORDERED: CARDIZEM INJ 50 MG VIAL IVP ONE (18:09)
[2020-06-13] MEDS: COLACE CAP 100 MG PO SCH (21:47)
[2020-06-14] MEDS: LR 1000 ML IV 1,000 ML IV SCH ×4 (03:15→22:12)
[2020-06-14] MEDS: ASCORBIC ACID INJ MULTI-DOSE VIAL 1,500 MG in NS 50 ML IV 50 ML IV SCH ×4 (03:19→21:30)
[2020-06-14 05:22] LABS: BASOPHILS % (AUTO) 0.5 % (0.2-1.0); EOSINOPHILS # (AUTO) 0.1 x10^3/uL (0.0-0.2); EOSINOPHILS % (AUTO) 1.4 % (0.9-2.9); HEMATOCRIT 39.3 % (42.0-54.0); HEMOGLOBIN 13.2 g/dL (13.5-18.0); LYMPHOCYTES # (AUTO) 0.3 X10^3/uL (1.3-2.9); LYMPHOCYTES % (AUTO) 4.3 % (21.0-51.0); MEAN CORPUSCULAR HEMOGLOBIN 30.1 pg (27.0-34.0); MEAN CORPUSCULAR HGB CONC 33.5 g/dL (33.0-35.0); MEAN CORPUSCULAR VOLUME 89.8 fL (80.0-100.0); MEAN PLATELET VOLUME 8.9 fL (7.4-11.0); MONOCYTES # (AUTO) 0.1 x10^3/uL (0.3-0.8); MONOCYTES % (AUTO) 1.4 % (0.0-13.0); NEUTROPHILS # (AUTO) 7.3 x10^3/uL (2.2-4.8); NEUTROPHILS % (AUTO) 92.4 % (42.0-75.0); PLATELET COUNT 127 X10^3/uL (150.0-450.0); RED BLOOD COUNT 4.37 X10^6/uL (4.7-6.0); RED CELL DISTRIBUTION WIDTH 14.9 % (11.6-16.5); WHITE BLOOD COUNT 7.9 X10^3/uL (3.6-10.0)
[2020-06-14 05:25] LABS: ALANINE AMINOTRANSFERASE 20 Units/L (12-78); ALBUMIN 2.7 g/dL (3.4-5.0); ALKALINE PHOSPHATASE 109 Units/L (46-116); ASPARTATE AMINO TRANSFERASE 45 Units/L (15-37); BLOOD UREA NITROGEN 21 mg/dL (7-18); CALCIUM 8.3 mg/dL (8.5-10.1); CHLORIDE 97 mmol/L (98-107); COR CA(FOR HYPOALB) 9.3 mg/dL (8.5-10.1); CREATININE 0.84 mg/dL (0.70-1.30); SODIUM 136 mmol/L (136-145); TOTAL PROTEIN 5.8 g/dL (6.4-8.2); eGFR NON BLACK RACES > 60 (>60)
[2020-06-14 05:50] LABS: BAND NEUTROPHILS % 4 % (0-10); PLATELET MORPHOLOGY COMMENT NORMAL (NORMAL)
[2020-06-14] MEDS: SINEMET (PLAIN) 25/250 MG PO SCH ×3 (07:26→22:11)
--- NOTE | 2020-06-14 07:33 | RAD ---
HISTORYCOPD, COVID, PNEUMONIASTUDYCHEST, 1 VIEWCOMPARISONPortable chest June 05, 2020FINDINGSThe trachea is midline. The cardiac silhouette is unremarkable. There persistent bilateral diffuse infiltrates. On the right there is mild worsening of the density of the infiltrate in the right lung base there is mild improvement of the density in the infiltrate in the left lung base but a new interstitial infiltrate is seen in the left upper lobe. The bony thorax is unremarkable.IMPRESSIONMix pattern of worsening and improvement in the bilateral diffuse infiltrates. There is a new interstitial infiltrate in the left upper lobe.Electronically signed by: NERI SOLANO (Jun 14, 2020 07:32:55)
[2020-06-14] MEDS: ZINC SULFATE PO SCH ×2 (09:22→22:11)
[2020-06-14] MEDS: VSL#3 PO SCH (09:23)
[2020-06-14] MEDS: VITAMIN A PO SCH (09:24)
[2020-06-14] MEDS: COREG TAB 12.5 MG PO SCH ×2 (09:24→22:01)
[2020-06-14] MEDS: ZESTRIL TAB 20 MG PO SCH (09:25)
[2020-06-14] MEDS: ECOTRIN TAB 325 MG PO SCH (09:26)
[2020-06-14] MEDS: VITAMIN D3 125 mcg (5,000 UNITS) PO SCH (09:26)
[2020-06-14] MEDS: TRICOR TAB 160 MG PO SCH (09:27)
[2020-06-14] MEDS: PriLOSEC PO SCH ×2 (09:27→22:09)
[2020-06-14] MEDS: MILK OF MAGNESIA PO SCH (09:27)
[2020-06-14] MEDS: SINGULAIR TAB 10 MG PO SCH (09:27)
[2020-06-14] MEDS: ROBITUSSIN DM PO SCH ×4 (09:28→22:09)
[2020-06-14] MEDS: DUONEB 0.5 MG/3 MG (3 mL) NEB SCH ×4 (09:30→20:30)
[2020-06-14] MEDS ORDERED: LOPRESSOR INJ 5 MG AMP IVP PRN (09:30)
[2020-06-14] MEDS: PULMICORT NEB TX 0.5 MG NEB SCH ×2 (09:30→20:30)
[2020-06-14] MEDS: DECADRON INJ IVP SCH (09:55)
[2020-06-14] MEDS: LOVENOX INJ 30 MG SYR SC SCH ×2 (09:58→21:30)
[2020-06-14] MEDS: VASOTEC INJ 2.5 MG VIAL IVP SCH ×4 (09:59→21:30)
[2020-06-14] MEDS: ATIVAN INJ 2 MG VIAL IVP PRN (15:28)
[2020-06-14] MEDS: COLACE CAP 100 MG PO SCH (22:02)
[2020-06-15] MEDS: ASCORBIC ACID INJ MULTI-DOSE VIAL 1,500 MG in NS 50 ML IV 50 ML IV SCH ×4 (03:55→20:44)
[2020-06-15] MEDS ORDERED: ZOSYN VIAL 4.5 GRAMS IV ONE (04:37)
[2020-06-15] MEDS ORDERED: NS 100 ML IV 100 ML IV ONE (04:38)
[2020-06-15] MEDS: LR 1000 ML IV 1,000 ML IV SCH ×2 (05:17→19:45)
[2020-06-15] MEDS: SINEMET (PLAIN) 25/250 MG PO SCH ×3 (05:18→23:13)
[2020-06-15 06:09] LABS: ALANINE AMINOTRANSFERASE 17 Units/L (12-78); ALBUMIN 2.6 g/dL (3.4-5.0); ALKALINE PHOSPHATASE 101 Units/L (46-116); ASPARTATE AMINO TRANSFERASE 47 Units/L (15-37); BLOOD UREA NITROGEN 20 mg/dL (7-18); CALCIUM 8.2 mg/dL (8.5-10.1); CHLORIDE 99 mmol/L (98-107); COR CA(FOR HYPOALB) 9.3 mg/dL (8.5-10.1); SODIUM 137 mmol/L (136-145); TOTAL PROTEIN 5.5 g/dL (6.4-8.2); eGFR NON BLACK RACES > 60 (>60)
[2020-06-15 06:12] LABS: BASOPHILS % (AUTO) 0.2 % (0.2-1.0); EOSINOPHILS # (AUTO) 0.1 x10^3/uL (0.0-0.2); EOSINOPHILS % (AUTO) 0.8 % (0.9-2.9); HEMATOCRIT 35.4 % (42.0-54.0); LYMPHOCYTES # (AUTO) 0.2 X10^3/uL (1.3-2.9); MEAN CORPUSCULAR HEMOGLOBIN 30.3 pg (27.0-34.0); MEAN CORPUSCULAR HGB CONC 33.9 g/dL (33.0-35.0); MEAN CORPUSCULAR VOLUME 89.2 fL (80.0-100.0); MEAN PLATELET VOLUME 8.8 fL (7.4-11.0); MONOCYTES # (AUTO) 0.2 x10^3/uL (0.3-0.8); MONOCYTES % (AUTO) 1.9 % (0.0-13.0); NEUTROPHILS # (AUTO) 7.6 x10^3/uL (2.2-4.8); NEUTROPHILS % (AUTO) 94.1 % (42.0-75.0); PLATELET COUNT 120 X10^3/uL (150.0-450.0); RED BLOOD COUNT 3.97 X10^6/uL (4.7-6.0); RED CELL DISTRIBUTION WIDTH 14.4 % (11.6-16.5); WHITE BLOOD COUNT 8.1 X10^3/uL (3.6-10.0)
[2020-06-15 07:32] LABS: PLATELET MORPHOLOGY COMMENT NORMAL (NORMAL)
[2020-06-15] MEDS: LOVENOX INJ 30 MG SYR SC SCH ×2 (08:24→20:45)
[2020-06-15] MEDS: VASOTEC INJ 2.5 MG VIAL IVP SCH ×4 (08:26→20:44)
[2020-06-15] MEDS: DECADRON INJ IVP SCH (08:26)
[2020-06-15] MEDS: PULMICORT NEB TX 0.5 MG NEB SCH ×2 (09:50→20:55)
[2020-06-15] MEDS: DUONEB 0.5 MG/3 MG (3 mL) NEB SCH ×4 (09:50→20:55)
[2020-06-15] MEDS: MILK OF MAGNESIA PO SCH (10:11)
[2020-06-15] MEDS: COREG TAB 12.5 MG PO SCH ×2 (10:11→20:45)
[2020-06-15] MEDS: ECOTRIN TAB 325 MG PO SCH (10:11)
[2020-06-15] MEDS: PriLOSEC PO SCH ×2 (10:12→20:47)
[2020-06-15] MEDS: ROBITUSSIN DM PO SCH ×4 (10:12→20:47)
[2020-06-15] MEDS: TRICOR TAB 160 MG PO SCH (10:12)
[2020-06-15] MEDS: VITAMIN A PO SCH (10:12)
[2020-06-15] MEDS: SINGULAIR TAB 10 MG PO SCH (10:12)
[2020-06-15] MEDS: ZINC SULFATE PO SCH ×2 (10:13→20:47)
[2020-06-15] MEDS: ZESTRIL TAB 20 MG PO SCH (10:13)
[2020-06-15] MEDS: VSL#3 PO SCH (10:13)
[2020-06-15] MEDS: VITAMIN D3 125 mcg (5,000 UNITS) PO SCH (10:13)
[2020-06-15] MEDS: COLACE CAP 100 MG PO SCH (20:45)
[2020-06-16] MEDS: ASCORBIC ACID INJ MULTI-DOSE VIAL 1,500 MG in NS 50 ML IV 50 ML IV SCH ×4 (03:00→20:19)
[2020-06-16] MEDS: LR 1000 ML IV 1,000 ML IV SCH ×2 (06:33→20:18)
[2020-06-16] MEDS: SINEMET (PLAIN) 25/250 MG PO SCH ×3 (06:34→22:00)
[2020-06-16] MEDS ORDERED: ZESTRIL TAB 20 MG ONE (08:37)
[2020-06-16] MEDS: PULMICORT NEB TX 0.5 MG NEB SCH ×2 (10:15→21:05)
[2020-06-16] MEDS: DUONEB 0.5 MG/3 MG (3 mL) NEB SCH ×4 (10:15→21:05)
[2020-06-16] MEDS: VITAMIN D3 125 mcg (5,000 UNITS) PO SCH (10:41)
[2020-06-16] MEDS: ZESTRIL TAB 20 MG PO SCH (10:41)
[2020-06-16] MEDS: ZINC SULFATE PO SCH ×2 (10:45→20:20)
[2020-06-16] MEDS: VITAMIN A PO SCH (10:45)
[2020-06-16] MEDS: ROBITUSSIN DM PO SCH ×4 (10:45→20:20)
[2020-06-16] MEDS: VSL#3 PO SCH (10:45)
[2020-06-16] MEDS: SINGULAIR TAB 10 MG PO SCH (10:47)
[2020-06-16] MEDS: PriLOSEC PO SCH ×2 (10:47→20:20)
[2020-06-16] MEDS: VASOTEC INJ 2.5 MG VIAL IVP SCH ×4 (10:47→20:20)
[2020-06-16] MEDS: TRICOR TAB 160 MG PO SCH (10:47)
[2020-06-16] MEDS: LOVENOX INJ 30 MG SYR SC SCH ×2 (10:48→20:19)
[2020-06-16] MEDS: ECOTRIN TAB 325 MG PO SCH (10:48)
[2020-06-16] MEDS: MILK OF MAGNESIA PO SCH (10:48)
[2020-06-16] MEDS: DECADRON INJ IVP SCH (10:49)
[2020-06-16] MEDS: COREG TAB 12.5 MG PO SCH ×2 (10:49→20:19)
[2020-06-16] MEDS: COLACE CAP 100 MG PO SCH (20:19)
[2020-06-17] MEDS: ASCORBIC ACID INJ MULTI-DOSE VIAL 1,500 MG in NS 50 ML IV 50 ML IV SCH ×4 (03:40→20:46)
[2020-06-17 06:02] LABS: ALANINE AMINOTRANSFERASE 20 Units/L (12-78); ALBUMIN 2.6 g/dL (3.4-5.0); ALKALINE PHOSPHATASE 105 Units/L (46-116); ASPARTATE AMINO TRANSFERASE 62 Units/L (15-37); BLOOD UREA NITROGEN 15 mg/dL (7-18); CALCIUM 8.2 mg/dL (8.5-10.1); CARBON DIOXIDE 29.8 mmol/L (21-32); CHLORIDE 97 mmol/L (98-107); COR CA(FOR HYPOALB) 9.3 mg/dL (8.5-10.1); CREATININE 0.65 mg/dL (0.70-1.30); SODIUM 135 mmol/L (136-145); TOTAL PROTEIN 5.6 g/dL (6.4-8.2); eGFR NON BLACK RACES > 60 (>60)
[2020-06-17 06:12] LABS: BASOPHILS % (AUTO) 0.2 % (0.2-1.0); EOSINOPHILS # (AUTO) 0.3 x10^3/uL (0.0-0.2); EOSINOPHILS % (AUTO) 6.9 % (0.9-2.9); HEMATOCRIT 36.4 % (42.0-54.0); HEMOGLOBIN 12.4 g/dL (13.5-18.0); LYMPHOCYTES # (AUTO) 0.3 X10^3/uL (1.3-2.9); LYMPHOCYTES % (AUTO) 5.5 % (21.0-51.0); MEAN CORPUSCULAR HEMOGLOBIN 30.2 pg (27.0-34.0); MEAN CORPUSCULAR VOLUME 88.9 fL (80.0-100.0); MEAN PLATELET VOLUME 8.7 fL (7.4-11.0); MONOCYTES # (AUTO) 0 x10^3/uL (0.3-0.8); MONOCYTES % (AUTO) 0.6 % (0.0-13.0); NEUTROPHILS # (AUTO) 4.3 x10^3/uL (2.2-4.8); NEUTROPHILS % (AUTO) 86.8 % (42.0-75.0); PLATELET COUNT 122 X10^3/uL (150.0-450.0); RED BLOOD COUNT 4.09 X10^6/uL (4.7-6.0); RED CELL DISTRIBUTION WIDTH 14.8 % (11.6-16.5); WHITE BLOOD COUNT 4.9 X10^3/uL (3.6-10.0)
[2020-06-17] MEDS: SINEMET (PLAIN) 25/250 MG PO SCH ×3 (06:22→21:47)
[2020-06-17 07:37] LABS: BAND NEUTROPHILS % 6 % (0-10)
[2020-06-17 07:38] LABS: PLATELET MORPHOLOGY COMMENT NORMAL (NORMAL)
[2020-06-17] MEDS: LOVENOX INJ 30 MG SYR SC SCH ×2 (09:30→20:45)
[2020-06-17] MEDS: DECADRON INJ IVP SCH (09:30)
[2020-06-17] MEDS: VASOTEC INJ 2.5 MG VIAL IVP SCH ×4 (09:30→20:44)
[2020-06-17] MEDS ORDERED: LASIX IVP ONE ×2 (09:50→09:52)
[2020-06-17] MEDS: ZESTRIL TAB 20 MG PO SCH (10:04)
[2020-06-17] MEDS: VSL#3 PO SCH (10:04)
[2020-06-17] MEDS: ZINC SULFATE PO SCH ×2 (10:04→20:46)
[2020-06-17] MEDS: SINGULAIR TAB 10 MG PO SCH (10:05)
[2020-06-17] MEDS: VITAMIN D3 125 mcg (5,000 UNITS) PO SCH (10:05)
[2020-06-17] MEDS: VITAMIN A PO SCH (10:05)
[2020-06-17] MEDS: MILK OF MAGNESIA PO SCH (10:06)
[2020-06-17] MEDS: PriLOSEC PO SCH ×2 (10:06→20:46)
[2020-06-17] MEDS: TRICOR TAB 160 MG PO SCH (10:06)
[2020-06-17] MEDS: ROBITUSSIN DM PO SCH ×4 (10:06→20:46)
[2020-06-17] MEDS: ECOTRIN TAB 325 MG PO SCH (10:07)
[2020-06-17] MEDS: COREG TAB 12.5 MG PO SCH ×2 (10:08→20:46)
[2020-06-17] MEDS: LR 1000 ML IV 1,000 ML IV SCH ×2 (10:08→20:46)
--- NOTE | 2020-06-17 10:09 | RAD ---
HISTORYCHFSTUDYCHEST, 1 [id number]/30/2020TECHNIQUEAP view of the chestFINDINGSCardiac size is normal stable compared to prior. Stable mediastinal contour. Diffuse bilateral airspace disease is slightly improved compared to prior. No pleural effusion or pneumothorax. Left subclavian central line in good position.IMPRESSIONMild improvement in diffuse bilateral airspace disease.Electronically signed by: Jordan Campos (Jun 17, 2020 10:08:14)
[2020-06-17] MEDS: PULMICORT NEB TX 0.5 MG NEB SCH ×2 (10:20→21:56)
[2020-06-17] MEDS: DUONEB 0.5 MG/3 MG (3 mL) NEB SCH ×4 (11:00→21:56)
[2020-06-17] MEDS ORDERED: MORPHINE SULFATE INJ 4 MG IVP ONE ×2 (11:26→11:50)
[2020-06-17] MEDS ORDERED: MORPHINE SULFATE INJ 4 MG ONE (11:30)
[2020-06-17] MEDS: COLACE CAP 100 MG PO SCH (20:45)
[2020-06-18] MEDS: ASCORBIC ACID INJ MULTI-DOSE VIAL 1,500 MG in NS 50 ML IV 50 ML IV SCH ×4 (03:12→22:29)
[2020-06-18] MEDS: LR 1000 ML IV 1,000 ML IV SCH ×4 (05:00→22:32)
[2020-06-18 05:22] LABS: BASOPHILS % (AUTO) 0.1 % (0.2-1.0); EOSINOPHILS # (AUTO) 0.1 x10^3/uL (0.0-0.2); EOSINOPHILS % (AUTO) 2.1 % (0.9-2.9); HEMATOCRIT 29.5 % (42.0-54.0); HEMOGLOBIN 9.9 g/dL (13.5-18.0); LYMPHOCYTES # (AUTO) 0.2 X10^3/uL (1.3-2.9); LYMPHOCYTES % (AUTO) 3.3 % (21.0-51.0); MEAN CORPUSCULAR HEMOGLOBIN 30.4 pg (27.0-34.0); MEAN CORPUSCULAR HGB CONC 33.7 g/dL (33.0-35.0); MEAN CORPUSCULAR VOLUME 90.4 fL (80.0-100.0); MEAN PLATELET VOLUME 8.9 fL (7.4-11.0); MONOCYTES # (AUTO) 0.1 x10^3/uL (0.3-0.8); MONOCYTES % (AUTO) 2.7 % (0.0-13.0); NEUTROPHILS # (AUTO) 4.3 x10^3/uL (2.2-4.8); NEUTROPHILS % (AUTO) 91.8 % (42.0-75.0); PLATELET COUNT 84 X10^3/uL (150.0-450.0); RED BLOOD COUNT 3.26 X10^6/uL (4.7-6.0); RED CELL DISTRIBUTION WIDTH 14.6 % (11.6-16.5); WHITE BLOOD COUNT 4.7 X10^3/uL (3.6-10.0)
[2020-06-18 05:28] LABS: ALANINE AMINOTRANSFERASE 19 Units/L (12-78); ALBUMIN 2.3 g/dL (3.4-5.0); ALKALINE PHOSPHATASE 105 Units/L (46-116); ASPARTATE AMINO TRANSFERASE 52 Units/L (15-37); BLOOD UREA NITROGEN 17 mg/dL (7-18); CALCIUM 7.9 mg/dL (8.5-10.1); CARBON DIOXIDE 33.1 mmol/L (21-32); CHLORIDE 97 mmol/L (98-107); COR CA(FOR HYPOALB) 9.3 mg/dL (8.5-10.1); CREATININE 0.69 mg/dL (0.70-1.30); SODIUM 137 mmol/L (136-145); TOTAL PROTEIN 5.1 g/dL (6.4-8.2); eGFR NON BLACK RACES > 60 (>60)
--- NOTE | 2020-06-18 06:09 | RAD ---
HISTORYFollow-up COVID-19STUDYChest AP [id number]/03/2020FINDINGSThere is a left-sided central line in good position. The heart is within normal limits in size. Diffuse bilateral alveolar infiltrates are again identified not signif icantly changed on the right but slightly improved on the left. No pleural effusions are identified. Bony thorax is unremarkable.IMPRESSIONDiffuse bilateral infiltrates unchanged on the right and improv ed somewhat on the leftElectronically signed by: RUSS WOLF (Jun 18, 2020 06:08:31)
[2020-06-18 06:14] LABS: PLATELET MORPHOLOGY COMMENT NORMAL (NORMAL)
[2020-06-18] MEDS: SINEMET (PLAIN) 25/250 MG PO SCH ×3 (06:32→22:32)
[2020-06-18] MEDS: DECADRON INJ IVP SCH (09:30)
[2020-06-18] MEDS: VASOTEC INJ 2.5 MG VIAL IVP SCH ×4 (09:30→22:31)
[2020-06-18] MEDS: LOVENOX INJ 30 MG SYR SC SCH ×2 (09:30→22:30)
[2020-06-18] MEDS: DUONEB 0.5 MG/3 MG (3 mL) NEB SCH ×4 (09:50→20:15)
[2020-06-18] MEDS: PULMICORT NEB TX 0.5 MG NEB SCH ×2 (09:50→20:15)
[2020-06-18] MEDS: ZINC SULFATE PO SCH ×2 (10:01→22:31)
[2020-06-18] MEDS: VITAMIN A PO SCH (10:02)
[2020-06-18] MEDS: VSL#3 PO SCH (10:02)
[2020-06-18] MEDS: VITAMIN D3 125 mcg (5,000 UNITS) PO SCH (10:02)
[2020-06-18] MEDS: ZESTRIL TAB 20 MG PO SCH (10:02)
[2020-06-18] MEDS: TRICOR TAB 160 MG PO SCH (10:03)
[2020-06-18] MEDS: PriLOSEC PO SCH ×2 (10:03→22:31)
[2020-06-18] MEDS: MILK OF MAGNESIA PO SCH (10:03)
[2020-06-18] MEDS: SINGULAIR TAB 10 MG PO SCH (10:03)
[2020-06-18] MEDS: ROBITUSSIN DM PO SCH ×4 (10:03→22:31)
[2020-06-18] MEDS: ECOTRIN TAB 325 MG PO SCH (10:03)
[2020-06-18] MEDS: COREG TAB 12.5 MG PO SCH ×2 (10:05→22:30)
[2020-06-18] MEDS ORDERED: NS 50 ML IV 50 ML IV ONE (14:16)
[2020-06-18] MEDS: COLACE CAP 100 MG PO SCH (22:30)
[2020-06-19] MEDS: ASCORBIC ACID INJ MULTI-DOSE VIAL 1,500 MG in NS 50 ML IV 50 ML IV SCH ×4 (02:23→21:04)
[2020-06-19] MEDS: SINEMET (PLAIN) 25/250 MG PO SCH ×3 (05:43→21:07)
[2020-06-19 05:45] LABS: BASOPHILS % (AUTO) 0.5 % (0.2-1.0); EOSINOPHILS # (AUTO) 0.1 x10^3/uL (0.0-0.2); EOSINOPHILS % (AUTO) 1.7 % (0.9-2.9); HEMATOCRIT 29.2 % (42.0-54.0); HEMOGLOBIN 9.9 g/dL (13.5-18.0); LYMPHOCYTES # (AUTO) 0.1 X10^3/uL (1.3-2.9); LYMPHOCYTES % (AUTO) 3.6 % (21.0-51.0); MEAN CORPUSCULAR HEMOGLOBIN 30.4 pg (27.0-34.0); MEAN CORPUSCULAR HGB CONC 34.1 g/dL (33.0-35.0); MEAN CORPUSCULAR VOLUME 89.1 fL (80.0-100.0); MEAN PLATELET VOLUME 8.7 fL (7.4-11.0); MONOCYTES # (AUTO) 0.1 x10^3/uL (0.3-0.8); MONOCYTES % (AUTO) 3.8 % (0.0-13.0); NEUTROPHILS # (AUTO) 3.5 x10^3/uL (2.2-4.8); NEUTROPHILS % (AUTO) 90.4 % (42.0-75.0); PLATELET COUNT 82 X10^3/uL (150.0-450.0); RED BLOOD COUNT 3.27 X10^6/uL (4.7-6.0); RED CELL DISTRIBUTION WIDTH 14.7 % (11.6-16.5); WHITE BLOOD COUNT 3.8 X10^3/uL (3.6-10.0)
[2020-06-19 05:47] LABS: ALANINE AMINOTRANSFERASE 18 Units/L (12-78); ALBUMIN 2.4 g/dL (3.4-5.0); ALKALINE PHOSPHATASE 99 Units/L (46-116); ASPARTATE AMINO TRANSFERASE 51 Units/L (15-37); BLOOD UREA NITROGEN 16 mg/dL (7-18); CALCIUM 8.1 mg/dL (8.5-10.1); CARBON DIOXIDE 33.3 mmol/L (21-32); CHLORIDE 97 mmol/L (98-107); COR CA(FOR HYPOALB) 9.4 mg/dL (8.5-10.1); CREATININE 0.58 mg/dL (0.70-1.30); SODIUM 136 mmol/L (136-145); TOTAL PROTEIN 5.3 g/dL (6.4-8.2); eGFR NON BLACK RACES > 60 (>60)
[2020-06-19 06:24] LABS: BAND NEUTROPHILS % 8 % (0-10)
[2020-06-19 06:26] LABS: PLATELET MORPHOLOGY COMMENT NORMAL (NORMAL)
[2020-06-19] MEDS: DUONEB 0.5 MG/3 MG (3 mL) NEB SCH ×4 (08:50→21:42)
[2020-06-19] MEDS: PULMICORT NEB TX 0.5 MG NEB SCH ×2 (08:50→21:42)
[2020-06-19] MEDS: COREG TAB 12.5 MG PO SCH ×2 (09:11→21:05)
[2020-06-19] MEDS: PriLOSEC PO SCH ×2 (09:12→21:06)
[2020-06-19] MEDS: MILK OF MAGNESIA PO SCH (09:12)
[2020-06-19] MEDS: ROBITUSSIN DM PO SCH ×4 (09:12→21:06)
[2020-06-19] MEDS: ECOTRIN TAB 325 MG PO SCH (09:12)
[2020-06-19] MEDS: SINGULAIR TAB 10 MG PO SCH (09:12)
[2020-06-19] MEDS: TRICOR TAB 160 MG PO SCH (09:13)
[2020-06-19] MEDS: ZESTRIL TAB 20 MG PO SCH (09:13)
[2020-06-19] MEDS: VSL#3 PO SCH (09:13)
[2020-06-19] MEDS: ZINC SULFATE PO SCH ×2 (09:13→21:07)
[2020-06-19] MEDS: VITAMIN A PO SCH (09:13)
[2020-06-19] MEDS: VITAMIN D3 125 mcg (5,000 UNITS) PO SCH (09:13)
[2020-06-19] MEDS: LOVENOX INJ 30 MG SYR SC SCH ×2 (09:14→21:05)
[2020-06-19] MEDS: DECADRON INJ IVP SCH (09:14)
[2020-06-19] MEDS: VASOTEC INJ 2.5 MG VIAL IVP SCH ×5 (09:15→21:07)
--- NOTE | 2020-06-19 12:26 | PCM.PROG ---
Progress Note Progress Note for Day of Date of Exam: 06/19/20 Subjective Subjective: Pt is a 69 yo m admitted for COVID19 pneumonia. His respiratory status continues to not improve. Labs/imaging: Wbc 3.8, Hgb 9.9, Plt 82, Na 136, K 4.3, Cr 0.58, Gluc 84, CXR on 06/18:Diffuse bilateral infiltrates unchanged on the right and improved somewhat on the left. He is currently on BiPAP w/ FiO2 100%. Continue medications, respiratory therapy, BiPAP support. Will continue to monitor patient and follow up labs/imaging in the morning. Past Medical Family Social History Past Med/Fam/Surg Hx: No changes since H&P Allergies: Allergies doxycycline Allergy (Verified 05/27/20 16:45) Sulfa (Sulfonamide Antibiotics) [SULFA] Allergy (Verified 05/27/20 16:45) sulfamethoxazole [From Bactrim] Allergy (Verified 05/27/20 16:45) trimethoprim [From Bactrim] Allergy (Verified 05/27/20 16:45) Review of Systems ROS: No change since H&P Vital Signs and I&O's Vital Signs: Temperature 97.6 F Pulse Rate 100 Respiratory Rate 37 Blood Pressure [Left Arm] 115/55 Blood Pressure [Right Arm] 110/51 Blood Pressure 156/69 O2 Sat by Pulse Oximetry 80 Intake and Output: Intake & Output 06/16/20 06/17/20 06/18/20 06/19/20 23:59 23:59 23:59 23:59 Intake Total 2460 / 2460 3475 / 3475 3650 / 3650 1200 / 1200 Output Total 2550 / 2550 3000 / 3000 2100 / 2100 700 / 700 Balance -90 / -90 475 / 475 1550 / 1550 500 / 500 Physical Exam Oriented: Other Eyes: Normal Ear: Normal Respiratory: Diminished and Rhonchi Cardiovascular: Normal : Normal Auscultation: Bowel Sounds: Normal Tenderness: Normal Skin: Normal Musculoskeletal: Normal Speech Pattern: Unclear Laboratory and Diagnostics Result Diagrams: 06/19/20 04:30 06/19/20 04:30 Labs: Laboratory WBC 3.8 X10^3/uL (3.6-10.0) 06/19/20 04:30 RBC 3.27 X10^6/uL (4.7-6.0) L 06/19/20 04:30 Hgb 9.9 g/dL (13.5-18.0) L 06/19/20 04:30 Hct 29.2 % (42.0-54.0) L 06/19/20 04:30 MCV 89.1 fL (80.0-100.0) 06/19/20 04:30 MCH 30.4 pg (27.0-34.0) 06/19/20 04:30 MCHC 34.1 g/dL (33.0-35.0) 06/19/20 04:30 RDW 14.7 % (11.6-16.5) 06/19/20 04:30 Plt Count 82 X10^3/uL (150.0-450.0) L 06/19/20 04:30 Plt Count Comment Decreased (ADEQUATE) 06/19/20 04:30 MPV 8.7 fL (7.4-11.0) 06/19/20 04:30 Neut % (Auto) 90.4 % (42.0-75.0) H 06/19/20 04:30 Lymph % (Auto) 3.6 % (21.0-51.0) L 06/19/20 04:30 [place] % (Auto) 3.8 % (0.0-13.0) 06/19/20 04:30 Eos % (Auto) 1.7 % (0.9-2.9) 06/19/20 04:30 Baso % (Auto) 0.5 % (0.2-1.0) 06/19/20 04:30 Neut # (Auto) 3.5 x10^3/uL (2.2-4.8) 06/19/20 04:30 Lymph # (Auto) 0.1 X10^3/uL (1.3-2.9) L 06/19/20 04:30 [place] # (Auto) 0.1 x10^3/uL (0.3-0.8) L 06/19/20 04:30 Eos # (Auto) 0.1 x10^3/uL (0.0-0.2) 06/19/20 04:30 Baso # (Auto) 0.0 X10^3/uL (0.0-0.1) 06/19/20 04:30 Absolute Nucleated RBC 0.2 /100WBC 06/19/20 04:30 Total Counted 100 06/19/20 04:30 Neutrophils % (Manual) 77 % (39-76) H 06/19/20 04:30 Band Neutrophils % 8 % (0-10) 06/19/20 04:30 Lymphocytes % (Manual) 8 % (13-43) L 06/19/20 04:30 Monocytes % (Manual) 5 % (4-9) 06/19/20 04:30 Eosinophils % (Manual) 2 % (0-6) 06/19/20 04:30 Plt Morphology Comment Normal (NORMAL) 06/19/20 04:30 RBC Morphology Normal (NORMAL) 06/19/20 04:30 Hypochromasia Slight A 06/02/20 04:21 Anisocytosis Slight A 05/30/20 04:36 Ovalocytes Present 05/30/20 04:36 Sample Site Lr 06/03/20 12:04 ABG pH 7.490 (7.35-7.45) H 06/03/20 12:04 ABG pCO2 41.0 mmHg (35.0-45.0) 06/03/20 12:04 ABG pO2 43.0 mmHg (80.0-100.0) L* 06/03/20 12:04 ABG HCO3 31.2 mmol/L (22-26) H* 06/03/20 12:04 ABG O2 Saturation 83.0 % (90-100) L* 06/03/20 12:04 ABG Base Excess 7.2 mmol/L (-2.0-2.0) H 06/03/20 12:04 [place] Test Pos 06/03/20 12:04 A-a Gradient 619.0 mmHg 06/03/20 12:04 FiO2 100.0 06/03/20 12:04 Blood Gas Comments Pt jodie well. cdn 06/03/20 12:04 Sodium 136 mmol/L (136-145) 06/19/20 04:30 Corrected Sodium TNP 06/19/20 04:30 Potassium 4.3 mmol/L (3.5-5.1) 06/19/20 04:30 Chloride 97 mmol/L (98-107) L 06/19/20 04:30 Carbon Dioxide 33.3 mmol/L (21-32) H 06/19/20 04:30 BUN 16 mg/dL (7-18) 06/19/20 04:30 Creatinine 0.58 mg/dL (0.70-1.30) L 06/19/20 04:30 Est GFR (MDRD) Af Amer > 60 (>60) 06/19/20 04:30 Est GFR (MDRD) Non-Af > 60 (>60) 06/19/20 04:30 Glucose 84 mg/dL (65-99) 06/19/20 04:30 Calcium 8.1 mg/dL (8.5-10.1) L 06/19/20 04:30 Corrected Calcium 9.4 mg/dL (8.5-10.1) 06/19/20 04:30 Total Bilirubin 0.60 mg/dL (0.2-1.0) 06/19/20 04:30 AST 51 Units/L (15-37) H 06/19/20 04:30 ALT 18 Units/L (12-78) 06/19/20 04:30 Alkaline Phosphatase 99 Units/L (46-116) 06/19/20 04:30 C-Reactive Protein 200.70 mg/L (0-3.0) H 05/30/20 04:36 Total Protein 5.3 g/dL (6.4-8.2) L 06/19/20 04:30 Albumin 2.4 g/dL (3.4-5.0) L 06/19/20 04:30 Globulin 2.9 g/dL (2.5-4.5) 06/19/20 04:30 Albumin/Globulin Ratio 0.8 Ratio (1.1-2.1) L 06/19/20 04:30 Amylase 41 Units/L (25-115) 05/27/20 14:54 Lipase 154 Units/L (73-393) 05/27/20 14:54 Specimen Type Clean catch urine 06/01/20 15:30 Urine Color Yellow (YELLOW) 06/01/20 15:30 Urine Appearance Clear (CLEAR) 06/01/20 15:30 Urine pH 8.0 (5.0 - 8.0) 06/01/20 15:30 Ur Specific [place] 1.010 (1.000-1.030) 06/01/20 15:30 Urine Protein Negative (NEGATIVE) 06/01/20 15:30 Urine Glucose (UA) Negative (NEGATIVE) 06/01/20 15:30 Urine Ketones Negative (NEGATIVE) 06/01/20 15:30 Urine Occult Blood Negative (NEGATIVE) 06/01/20 15:30 Urine Nitrite Negative (NEGATIVE) 06/01/20 15:30 Urine Bilirubin Negative (NEGATIVE) 06/01/20 15:30 Urine Urobilinogen Normal (NORMAL) 06/01/20 15:30 Ur Leukocyte Esterase Negative (NEGATIVE) 06/01/20 15:30 SARS-CoV-2 (PCR) Positive (NEGATIVE) A 05/27/20 15:32 Blood Type A POSITIVE 06/05/20 09:45 Antibody Screen Negative 06/05/20 09:45 Crossmatch See Detail 06/05/20 09:45 Plan (1) COVID-19: Status: Acute Plan: Treatments per protocol. RT support
[2020-06-19] MEDS: LR 1000 ML IV 1,000 ML IV SCH ×2 (13:29→21:07)
[2020-06-19] MEDS: COLACE CAP 100 MG PO SCH (21:05)
[2020-06-19] MEDS: ATIVAN INJ 2 MG VIAL IVP PRN (21:17)
[2020-06-20] MEDS: LR 1000 ML IV 1,000 ML IV SCH ×3 (00:09→23:03)
[2020-06-20] MEDS: ASCORBIC ACID INJ MULTI-DOSE VIAL 1,500 MG in NS 50 ML IV 50 ML IV SCH ×4 (02:12→20:34)
[2020-06-20] MEDS: SINEMET (PLAIN) 25/250 MG PO SCH ×3 (05:04→21:18)
--- NOTE | 2020-06-20 05:35 | RAD ---
HISTORYPNEUMONIASTUDYCHEST, 1 [id number] trachea is midline. The cardiac silhouette is stable. Bilateral pulmonary opacities/infiltrates, most confluent involving the right middle and lower lung zone, similar to prior exam. No pleural effusion or pneumothorax. Left-sided CVC unchanged in position.. The bony thorax is stable.IMPRESSIONNo appreciable interval change.Electronically signed by: Supriya Jensen (Jun 20, 2020 05:33:56)
[2020-06-20 06:33] LABS: ALANINE AMINOTRANSFERASE 19 Units/L (12-78); ALBUMIN 2.4 g/dL (3.4-5.0); ALKALINE PHOSPHATASE 113 Units/L (46-116); ASPARTATE AMINO TRANSFERASE 59 Units/L (15-37); BLOOD UREA NITROGEN 15 mg/dL (7-18); CALCIUM 8.2 mg/dL (8.5-10.1); CARBON DIOXIDE 31.6 mmol/L (21-32); CHLORIDE 97 mmol/L (98-107); COR CA(FOR HYPOALB) 9.5 mg/dL (8.5-10.1); CREATININE 0.67 mg/dL (0.70-1.30); SODIUM 136 mmol/L (136-145); TOTAL PROTEIN 5.4 g/dL (6.4-8.2); eGFR NON BLACK RACES > 60 (>60)
[2020-06-20 06:45] LABS: BASOPHILS % (AUTO) 0.3 % (0.2-1.0); EOSINOPHILS # (AUTO) 0.1 x10^3/uL (0.0-0.2); EOSINOPHILS % (AUTO) 1.9 % (0.9-2.9); HEMATOCRIT 30.4 % (42.0-54.0); HEMOGLOBIN 10.4 g/dL (13.5-18.0); LYMPHOCYTES # (AUTO) 0.2 X10^3/uL (1.3-2.9); LYMPHOCYTES % (AUTO) 3.6 % (21.0-51.0); MEAN CORPUSCULAR HEMOGLOBIN 30.2 pg (27.0-34.0); MEAN CORPUSCULAR HGB CONC 34.3 g/dL (33.0-35.0); MONOCYTES # (AUTO) 0 x10^3/uL (0.3-0.8); MONOCYTES % (AUTO) 0.9 % (0.0-13.0); NEUTROPHILS # (AUTO) 4.4 x10^3/uL (2.2-4.8); NEUTROPHILS % (AUTO) 93.3 % (42.0-75.0); PLATELET COUNT 84 X10^3/uL (150.0-450.0); RED BLOOD COUNT 3.45 X10^6/uL (4.7-6.0); RED CELL DISTRIBUTION WIDTH 14.4 % (11.6-16.5)
[2020-06-20 07:07] LABS: WHITE BLOOD COUNT 4.7 X10^3/uL (3.6-10.0)
[2020-06-20 07:09] LABS: BAND NEUTROPHILS % 12 % (0-10); PLATELET MORPHOLOGY COMMENT NORMAL (NORMAL)
[2020-06-20] MEDS: PULMICORT NEB TX 0.5 MG NEB SCH ×2 (08:45→21:58)
[2020-06-20] MEDS: DUONEB 0.5 MG/3 MG (3 mL) NEB SCH ×4 (08:45→21:58)
[2020-06-20] MEDS: COREG TAB 12.5 MG PO SCH ×2 (09:58→20:35)
[2020-06-20] MEDS: LOVENOX INJ 30 MG SYR SC SCH ×2 (09:59→20:35)
[2020-06-20] MEDS: MILK OF MAGNESIA PO SCH (09:59)
[2020-06-20] MEDS: DECADRON INJ IVP SCH (09:59)
[2020-06-20] MEDS: ECOTRIN TAB 325 MG PO SCH (09:59)
[2020-06-20] MEDS: VASOTEC INJ 2.5 MG VIAL IVP SCH ×4 (10:00→21:18)
[2020-06-20] MEDS: PriLOSEC PO SCH ×2 (10:00→20:36)
[2020-06-20] MEDS: TRICOR TAB 160 MG PO SCH (10:00)
[2020-06-20] MEDS: SINGULAIR TAB 10 MG PO SCH (10:00)
[2020-06-20] MEDS: ROBITUSSIN DM PO SCH ×4 (10:00→20:36)
[2020-06-20] MEDS: VITAMIN A PO SCH (10:01)
[2020-06-20] MEDS: ZESTRIL TAB 20 MG PO SCH (10:01)
[2020-06-20] MEDS: VITAMIN D3 125 mcg (5,000 UNITS) PO SCH (10:01)
[2020-06-20] MEDS: ZINC SULFATE PO SCH ×2 (10:01→20:38)
[2020-06-20] MEDS: VSL#3 PO SCH (10:01)
[2020-06-20] MEDS ORDERED: ACCUPRIL PO ONE (10:08)
--- NOTE | 2020-06-20 11:59 | PCM.PROG ---
Progress Note Progress Note for Day of Date of Exam: 06/20/20 Subjective Subjective: Pt is a 69 yo m admitted for COVID19 pneumonia. This morning his respiratory status continues to deteriorate. Labs/imaging: Wbc 4.7, Hgb 10.4, Plt 84, Na 136, K 4.1, Cr 0.67, Gluc 85, CXR: No appreciable interval change. He is currently on BiPAP w/ FiO2 100%. Pt is a DNR. Continue medications, respiratory therapy, BiPAP support. Will continue to monitor patient and follow up labs/imaging in the morning. Past Medical Family Social History Past Med/Fam/Surg Hx: No changes since H&P Allergies: Allergies doxycycline Allergy (Verified 05/27/20 16:45) Sulfa (Sulfonamide Antibiotics) [SULFA] Allergy (Verified 05/27/20 16:45) sulfamethoxazole [From Bactrim] Allergy (Verified 05/27/20 16:45) trimethoprim [From Bactrim] Allergy (Verified 05/27/20 16:45) Review of Systems ROS: No change since H&P Vital Signs and I&O's Vital Signs: Temperature 98.9 F Pulse Rate 96 Respiratory Rate 23 Blood Pressure [Left Arm] 115/55 Blood Pressure [Right Arm] 110/51 Blood Pressure 163/68 O2 Sat by Pulse Oximetry 81 Intake and Output: Intake & Output 06/17/20 06/18/20 06/19/20 06/20/20 23:59 23:59 23:59 23:59 Intake Total 3475 / 3475 3650 / 3650 3800 / 3800 1000 / 1000 Output Total 3000 / 3000 2100 / 2100 3600 / 3600 900 / 900 Balance 475 / 475 1550 / 1550 200 / 200 100 / 100 Physical Exam Oriented: Other Eyes: Normal Ear: Normal Respiratory: Diminished and Rhonchi Cardiovascular: Normal : Normal Auscultation: Bowel Sounds: Normal Tenderness: Normal Skin: Normal Musculoskeletal: Normal Speech Pattern: Unclear Laboratory and Diagnostics Result Diagrams: 06/20/20 04:45 06/20/20 04:45 Labs: Laboratory WBC 4.7 X10^3/uL (3.6-10.0) 06/20/20 04:45 RBC 3.45 X10^6/uL (4.7-6.0) L 06/20/20 04:45 Hgb 10.4 g/dL (13.5-18.0) L 06/20/20 04:45 Hct 30.4 % (42.0-54.0) L 06/20/20 04:45 MCV 88.0 fL (80.0-100.0) 06/20/20 04:45 MCH 30.2 pg (27.0-34.0) 06/20/20 04:45 MCHC 34.3 g/dL (33.0-35.0) 06/20/20 04:45 RDW 14.4 % (11.6-16.5) 06/20/20 04:45 Plt Count 84 X10^3/uL (150.0-450.0) L 06/20/20 04:45 Plt Count Comment Decreased (ADEQUATE) 06/20/20 04:45 MPV 10.0 fL (7.4-11.0) 06/20/20 04:45 Neut % (Auto) 93.3 % (42.0-75.0) H 06/20/20 04:45 Lymph % (Auto) 3.6 % (21.0-51.0) L 06/20/20 04:45 [place] % (Auto) 0.9 % (0.0-13.0) 06/20/20 04:45 Eos % (Auto) 1.9 % (0.9-2.9) 06/20/20 04:45 Baso % (Auto) 0.3 % (0.2-1.0) 06/20/20 04:45 Neut # (Auto) 4.4 x10^3/uL (2.2-4.8) 06/20/20 04:45 Lymph # (Auto) 0.2 X10^3/uL (1.3-2.9) L 06/20/20 04:45 [place] # (Auto) 0 x10^3/uL (0.3-0.8) L 06/20/20 04:45 Eos # (Auto) 0.1 x10^3/uL (0.0-0.2) 06/20/20 04:45 Baso # (Auto) 0.0 X10^3/uL (0.0-0.1) 06/20/20 04:45 Absolute Nucleated RBC 0.6 /100WBC 06/20/20 04:45 Total Counted 100 06/20/20 04:45 Neutrophils % (Manual) 76 % (39-76) 06/20/20 04:45 Band Neutrophils % 12 % (0-10) H 06/20/20 04:45 Lymphocytes % (Manual) 8 % (13-43) L 06/20/20 04:45 Monocytes % (Manual) 4 % (4-9) 06/20/20 04:45 Eosinophils % (Manual) 2 % (0-6) 06/19/20 04:30 Plt Clumps, EDTA Rare 06/20/20 04:45 Plt Morphology Comment Normal (NORMAL) 06/20/20 04:45 RBC Morphology Normal (NORMAL) 06/20/20 04:45 Hypochromasia Slight A 06/02/20 04:21 Anisocytosis Slight A 05/30/20 04:36 Ovalocytes Present 05/30/20 04:36 Sample Site Lr 06/03/20 12:04 ABG pH 7.490 (7.35-7.45) H 06/03/20 12:04 ABG pCO2 41.0 mmHg (35.0-45.0) 06/03/20 12:04 ABG pO2 43.0 mmHg (80.0-100.0) L* 06/03/20 12:04 ABG HCO3 31.2 mmol/L (22-26) H* 06/03/20 12:04 ABG O2 Saturation 83.0 % (90-100) L* 06/03/20 12:04 ABG Base Excess 7.2 mmol/L (-2.0-2.0) H 06/03/20 12:04 [place] Test Pos 06/03/20 12:04 A-a Gradient 619.0 mmHg 06/03/20 12:04 FiO2 100.0 06/03/20 12:04 Blood Gas Comments Pt jodie well. cdn 06/03/20 12:04 Sodium 136 mmol/L (136-145) 06/20/20 04:45 Corrected Sodium TNP 06/20/20 04:45 Potassium 4.1 mmol/L (3.5-5.1) 06/20/20 04:45 Chloride 97 mmol/L (98-107) L 06/20/20 04:45 Carbon Dioxide 31.6 mmol/L (21-32) 06/20/20 04:45 BUN 15 mg/dL (7-18) 06/20/20 04:45 Creatinine 0.67 mg/dL (0.70-1.30) L 06/20/20 04:45 Est GFR (MDRD) Af Amer > 60 (>60) 06/20/20 04:45 Est GFR (MDRD) Non-Af > 60 (>60) 06/20/20 04:45 Glucose 85 mg/dL (65-99) 06/20/20 04:45 Calcium 8.2 mg/dL (8.5-10.1) L 06/20/20 04:45 Corrected Calcium 9.5 mg/dL (8.5-10.1) 06/20/20 04:45 Total Bilirubin 0.70 mg/dL (0.2-1.0) 06/20/20 04:45 AST 59 Units/L (15-37) H 06/20/20 04:45 ALT 19 Units/L (12-78) 06/20/20 04:45 Alkaline Phosphatase 113 Units/L (46-116) 06/20/20 04:45 C-Reactive Protein 200.70 mg/L (0-3.0) H 05/30/20 04:36 Total Protein 5.4 g/dL (6.4-8.2) L 06/20/20 04:45 Albumin 2.4 g/dL (3.4-5.0) L 06/20/20 04:45 Globulin 3.0 g/dL (2.5-4.5) 06/20/20 04:45 Albumin/Globulin Ratio 0.8 Ratio (1.1-2.1) L 06/20/20 04:45 Amylase 41 Units/L (25-115) 05/27/20 14:54 Lipase 154 Units/L (73-393) 05/27/20 14:54 Specimen Type Clean catch urine 06/01/20 15:30 Urine Color Yellow (YELLOW) 06/01/20 15:30 Urine Appearance Clear (CLEAR) 06/01/20 15:30 Urine pH 8.0 (5.0 - 8.0) 06/01/20 15:30 Ur Specific [place] 1.010 (1.000-1.030) 06/01/20 15:30 Urine Protein Negative (NEGATIVE) 06/01/20 15:30 Urine Glucose (UA) Negative (NEGATIVE) 06/01/20 15:30 Urine Ketones Negative (NEGATIVE) 06/01/20 15:30 Urine Occult Blood Negative (NEGATIVE) 06/01/20 15:30 Urine Nitrite Negative (NEGATIVE) 06/01/20 15:30 Urine Bilirubin Negative (NEGATIVE) 06/01/20 15:30 Urine Urobilinogen Normal (NORMAL) 06/01/20 15:30 Ur Leukocyte Esterase Negative (NEGATIVE) 06/01/20 15:30 SARS-CoV-2 (PCR) Positive (NEGATIVE) A 05/27/20 15:32 Blood Type A POSITIVE 06/05/20 09:45 Antibody Screen Negative 06/05/20 09:45 Crossmatch See Detail 06/05/20 09:45 Plan (1) COVID-19: Status: Acute Plan: Treatments per protocol. RT support
[2020-06-20] MEDS: ATIVAN INJ 2 MG VIAL IVP PRN (19:48)
[2020-06-20] MEDS: COLACE CAP 100 MG PO SCH (20:35)
[2020-06-21] MEDS ORDERED: NS 100 ML IV 100 ML IV ONE (02:08)
[2020-06-21] MEDS: LR 1000 ML IV 1,000 ML IV SCH (02:29)
[2020-06-21] MEDS: ASCORBIC ACID INJ MULTI-DOSE VIAL 1,500 MG in NS 50 ML IV 50 ML IV SCH ×2 (02:29→09:00)
[2020-06-21] MEDS: ATIVAN INJ 2 MG VIAL IVP PRN (03:55)
[2020-06-21] MEDS: SINEMET (PLAIN) 25/250 MG PO SCH ×2 (05:03→14:47)
[2020-06-21 07:05] LABS: BASOPHILS % (AUTO) 0.3 % (0.2-1.0); EOSINOPHILS # (AUTO) 0.1 x10^3/uL (0.0-0.2); EOSINOPHILS % (AUTO) 2.1 % (0.9-2.9); HEMATOCRIT 29.6 % (42.0-54.0); LYMPHOCYTES # (AUTO) 0.2 X10^3/uL (1.3-2.9); LYMPHOCYTES % (AUTO) 6.1 % (21.0-51.0); MEAN CORPUSCULAR HEMOGLOBIN 29.9 pg (27.0-34.0); MEAN CORPUSCULAR HGB CONC 33.9 g/dL (33.0-35.0); MEAN CORPUSCULAR VOLUME 88.2 fL (80.0-100.0); MEAN PLATELET VOLUME 7.6 fL (7.4-11.0); MONOCYTES # (AUTO) 0.1 x10^3/uL (0.3-0.8); MONOCYTES % (AUTO) 2.3 % (0.0-13.0); NEUTROPHILS # (AUTO) 3.2 x10^3/uL (2.2-4.8); NEUTROPHILS % (AUTO) 89.2 % (42.0-75.0); PLATELET COUNT 46 X10^3/uL (150.0-450.0); RED BLOOD COUNT 3.35 X10^6/uL (4.7-6.0); RED CELL DISTRIBUTION WIDTH 14.4 % (11.6-16.5); WHITE BLOOD COUNT 3.5 X10^3/uL (3.6-10.0)
[2020-06-21 07:12] LABS: ALANINE AMINOTRANSFERASE 20 Units/L (12-78); ALBUMIN 2.2 g/dL (3.4-5.0); ALKALINE PHOSPHATASE 102 Units/L (46-116); ASPARTATE AMINO TRANSFERASE 56 Units/L (15-37); BLOOD UREA NITROGEN 13 mg/dL (7-18); CALCIUM 7.9 mg/dL (8.5-10.1); CARBON DIOXIDE 31.3 mmol/L (21-32); CHLORIDE 98 mmol/L (98-107); COR CA(FOR HYPOALB) 9.3 mg/dL (8.5-10.1); CREATININE 0.64 mg/dL (0.70-1.30); SODIUM 134 mmol/L (136-145); eGFR NON BLACK RACES > 60 (>60)
[2020-06-21 07:46] LABS: BAND NEUTROPHILS % 5 % (0-10); PLATELET MORPHOLOGY COMMENT NORMAL (NORMAL)
[2020-06-21] MEDS: PULMICORT NEB TX 0.5 MG NEB SCH (09:00)
[2020-06-21] MEDS: DUONEB 0.5 MG/3 MG (3 mL) NEB SCH ×3 (09:00→17:30)
[2020-06-21] MEDS: DECADRON INJ IVP SCH (09:18)
[2020-06-21] MEDS: ECOTRIN TAB 325 MG PO SCH (09:34)
[2020-06-21] MEDS: COREG TAB 12.5 MG PO SCH (09:34)
[2020-06-21] MEDS: TRICOR TAB 160 MG PO SCH (09:35)
[2020-06-21] MEDS: PriLOSEC PO SCH (09:35)
[2020-06-21] MEDS: ROBITUSSIN DM PO SCH ×2 (09:35→12:11)
[2020-06-21] MEDS: SINGULAIR TAB 10 MG PO SCH (09:35)
[2020-06-21] MEDS: MILK OF MAGNESIA PO SCH (09:35)
[2020-06-21] MEDS: VSL#3 PO SCH (09:37)
[2020-06-21] MEDS: VITAMIN D3 125 mcg (5,000 UNITS) PO SCH (09:37)
[2020-06-21] MEDS: VITAMIN A PO SCH (09:37)
[2020-06-21] MEDS: ZESTRIL TAB 20 MG PO SCH (09:37)
[2020-06-21] MEDS: ZINC SULFATE PO SCH (09:37)
[2020-06-21] MEDS ORDERED: MORPHINE SULFATE INJ 2 MG INJ IVP PRN (09:46)
[2020-06-21] MEDS ORDERED: ATIVAN INJ 2 MG VIAL IVP PRN (09:46)
[2020-06-21] MEDS ORDERED: TRANSDERM-SCOP TD SCH (10:00)
[2020-06-21] MEDS: VASOTEC INJ 2.5 MG VIAL IVP SCH ×2 (10:08→12:12)
--- NOTE | 2020-06-21 10:36 | PCM.PROG ---
Progress Note Progress Note for Day of Date of Exam: 06/21/20 Subjective Subjective: Pt is a 69 yo m admitted for COVID19 pneumonia. This morning his O2 sats continue to decline despite being on BiPAP w/ FiO2 100%. He remains difficult to arouse. Pt's prognosis is poor and was discussed with nursing who spoke with family. They desire patient be made comfortable at this time and not pursue aggressive treatments. Will respect families wishes and order comfort care measures. Labs/imaging: Wbc 3.5, Hgb 10, Plt 46, Na 134, K 3.8, Cr 0.64, Gluc 86. Will start comfort care measures including pain control and anxiolytics. Continue to monitor. Past Medical Family Social History Past Med/Fam/Surg Hx: No changes since H&P Allergies: Allergies doxycycline Allergy (Verified 05/27/20 16:45) Sulfa (Sulfonamide Antibiotics) [SULFA] Allergy (Verified 05/27/20 16:45) sulfamethoxazole [From Bactrim] Allergy (Verified 05/27/20 16:45) trimethoprim [From Bactrim] Allergy (Verified 05/27/20 16:45) Review of Systems ROS: No change since H&P Vital Signs and I&O's Vital Signs: Temperature 97.7 F Pulse Rate 100 Respiratory Rate 32 Blood Pressure [Left Arm] 115/55 Blood Pressure [Right Arm] 110/51 Blood Pressure 128/56 O2 Sat by Pulse Oximetry 66 Intake and Output: Intake & Output 06/18/20 06/19/20 06/20/20 06/21/20 23:59 23:59 23:59 23:59 Intake Total 3650 / 3650 3800 / 3800 3400 / 3400 1000 / 1000 Output Total 2100 / 2100 3600 / 3600 2900 / 2900 400 / 400 Balance 1550 / 1550 200 / 200 500 / 500 600 / 600 Physical Exam Oriented: Other Eyes: Normal Ear: Normal Respiratory: Diminished and Rhonchi Cardiovascular: Normal : Normal Auscultation: Bowel Sounds: Normal Tenderness: Normal and Other Skin: Normal Musculoskeletal: Normal Speech Pattern: Unclear Laboratory and Diagnostics Result Diagrams: 06/21/20 06:45 06/21/20 06:45 Labs: Laboratory WBC 3.5 X10^3/uL (3.6-10.0) L 06/21/20 06:45 RBC 3.35 X10^6/uL (4.7-6.0) L 06/21/20 06:45 Hgb 10.0 g/dL (13.5-18.0) L 06/21/20 06:45 Hct 29.6 % (42.0-54.0) L 06/21/20 06:45 MCV 88.2 fL (80.0-100.0) 06/21/20 06:45 MCH 29.9 pg (27.0-34.0) 06/21/20 06:45 MCHC 33.9 g/dL (33.0-35.0) 06/21/20 06:45 RDW 14.4 % (11.6-16.5) 06/21/20 06:45 Plt Count 46 X10^3/uL (150.0-450.0) L 06/21/20 06:45 Plt Count Comment Decreased (ADEQUATE) 06/21/20 06:45 MPV 7.6 fL (7.4-11.0) 06/21/20 06:45 Neut % (Auto) 89.2 % (42.0-75.0) H 06/21/20 06:45 Lymph % (Auto) 6.1 % (21.0-51.0) L 06/21/20 06:45 [place] % (Auto) 2.3 % (0.0-13.0) 06/21/20 06:45 Eos % (Auto) 2.1 % (0.9-2.9) 06/21/20 06:45 Baso % (Auto) 0.3 % (0.2-1.0) 06/21/20 06:45 Neut # (Auto) 3.2 x10^3/uL (2.2-4.8) 06/21/20 06:45 Lymph # (Auto) 0.2 X10^3/uL (1.3-2.9) L 06/21/20 06:45 [place] # (Auto) 0.1 x10^3/uL (0.3-0.8) L 06/21/20 06:45 Eos # (Auto) 0.1 x10^3/uL (0.0-0.2) 06/21/20 06:45 Baso # (Auto) 0.0 X10^3/uL (0.0-0.1) 06/21/20 06:45 Absolute Nucleated RBC 0.1 /100WBC 06/21/20 06:45 Total Counted 100 06/21/20 06:45 Neutrophils % (Manual) 85 % (39-76) H 06/21/20 06:45 Band Neutrophils % 5 % (0-10) 06/21/20 06:45 Lymphocytes % (Manual) 8 % (13-43) L 06/21/20 06:45 Monocytes % (Manual) 2 % (4-9) L 06/21/20 06:45 Eosinophils % (Manual) 2 % (0-6) 06/19/20 04:30 Nucleated RBCs 2 06/21/20 06:45 Plt Clumps, EDTA Rare 06/20/20 04:45 Plt Morphology Comment Normal (NORMAL) 06/21/20 06:45 RBC Morphology Normal (NORMAL) 06/21/20 06:45 Hypochromasia Slight A 06/02/20 04:21 Anisocytosis Slight A 05/30/20 04:36 Ovalocytes Present 05/30/20 04:36 Sample Site Lr 06/03/20 12:04 ABG pH 7.490 (7.35-7.45) H 06/03/20 12:04 ABG pCO2 41.0 mmHg (35.0-45.0) 06/03/20 12:04 ABG pO2 43.0 mmHg (80.0-100.0) L* 06/03/20 12:04 ABG HCO3 31.2 mmol/L (22-26) H* 06/03/20 12:04 ABG O2 Saturation 83.0 % (90-100) L* 06/03/20 12:04 ABG Base Excess 7.2 mmol/L (-2.0-2.0) H 06/03/20 12:04 [place] Test Pos 06/03/20 12:04 A-a Gradient 619.0 mmHg 06/03/20 12:04 FiO2 100.0 06/03/20 12:04 Blood Gas Comments Pt jodie well. cdn 06/03/20 12:04 Sodium 134 mmol/L (136-145) L 06/21/20 06:45 Corrected Sodium TNP 06/21/20 06:45 Potassium 3.8 mmol/L (3.5-5.1) 06/21/20 06:45 Chloride 98 mmol/L (98-107) 06/21/20 06:45 Carbon Dioxide 31.3 mmol/L (21-32) 06/21/20 06:45 BUN 13 mg/dL (7-18) 06/21/20 06:45 Creatinine 0.64 mg/dL (0.70-1.30) L 06/21/20 06:45 Est GFR (MDRD) Af Amer > 60 (>60) 06/21/20 06:45 Est GFR (MDRD) Non-Af > 60 (>60) 06/21/20 06:45 Glucose 86 mg/dL (65-99) 06/21/20 06:45 Calcium 7.9 mg/dL (8.5-10.1) L 06/21/20 06:45 Corrected Calcium 9.3 mg/dL (8.5-10.1) 06/21/20 06:45 Total Bilirubin 0.60 mg/dL (0.2-1.0) 06/21/20 06:45 AST 56 Units/L (15-37) H 06/21/20 06:45 ALT 20 Units/L (12-78) 06/21/20 06:45 Alkaline Phosphatase 102 Units/L (46-116) 06/21/20 06:45 C-Reactive Protein 200.70 mg/L (0-3.0) H 05/30/20 04:36 Total Protein 5.0 g/dL (6.4-8.2) L 06/21/20 06:45 Albumin 2.2 g/dL (3.4-5.0) L 06/21/20 06:45 Globulin 2.8 g/dL (2.5-4.5) 06/21/20 06:45 Albumin/Globulin Ratio 0.8 Ratio (1.1-2.1) L 06/21/20 06:45 Amylase 41 Units/L (25-115) 05/27/20 14:54 Lipase 154 Units/L (73-393) 05/27/20 14:54 Specimen Type Clean catch urine 06/01/20 15:30 Urine Color Yellow (YELLOW) 06/01/20 15:30 Urine Appearance Clear (CLEAR) 06/01/20 15:30 Urine pH 8.0 (5.0 - 8.0) 06/01/20 15:30 Ur Specific [place] 1.010 (1.000-1.030) 06/01/20 15:30 Urine Protein Negative (NEGATIVE) 06/01/20 15:30 Urine Glucose (UA) Negative (NEGATIVE) 06/01/20 15:30 Urine Ketones Negative (NEGATIVE) 06/01/20 15:30 Urine Occult Blood Negative (NEGATIVE) 06/01/20 15:30 Urine Nitrite Negative (NEGATIVE) 06/01/20 15:30 Urine Bilirubin Negative (NEGATIVE) 06/01/20 15:30 Urine Urobilinogen Normal (NORMAL) 06/01/20 15:30 Ur Leukocyte Esterase Negative (NEGATIVE) 06/01/20 15:30 SARS-CoV-2 (PCR) Positive (NEGATIVE) A 05/27/20 15:32 Blood Type A POSITIVE 06/05/20 09:45 Antibody Screen Negative 06/05/20 09:45 Crossmatch See Detail 06/05/20 09:45 Plan (1) COVID-19: Status: Acute Plan: Treatments per protocol. RT support
[2020-06-21 19:58] VITALS: BP 106/53
--- NOTE | 2020-06-22 13:51 | W.DIS.FURT ---
Summary of Discharge Discharge Summary of Date Date of Exam: 06/21/20 Admission Date Date of Admission: 05/27/20 Admission Diagnosis Hospital Course: Pt is a 69 yo m admitted for COVID19 pneumonia. Pt received aggressive treatment and medical management during hospital course. His respiratory status would cycle through improving and declining throughout his stay, and then became progressively worse. This morning his O2 sats continued to decline despite being on BiPAP w/ FiO2 100%. He remained difficult to arouse. Pt's prognosis was poor and was discussed with nursing who spoke with family. They desired patient be made comfortable at this time and not pursue aggressive treatments. He was placed on comfort care measures including pain control and anxiolytics. Pt had BiPAP removed per family's wishes. He at 20:41. Vital Signs: Vital Signs (72 hours) 06/19/20 14:01 06/19/20 14:42 06/19/20 15:00 Temperature Pulse Rate 100 H 100 H 100 H Respiratory Rate 20 20 22 Blood Pressure 164/76 164/77 O2 Sat by Pulse Oximetry 87 L 86 L 86 L 06/19/20 15:08 06/19/20 16:00 06/19/20 16:16 Temperature 97.2 F L Pulse Rate 101 H 99 H 97 H Respiratory Rate 21 19 20 Blood Pressure 164/76 O2 Sat by Pulse Oximetry 85 L 83 L 83 L 06/19/20 17:00 06/19/20 17:02 06/19/20 18:02 Temperature Pulse Rate 105 H 112 H 79 Respiratory Rate 23 22 19 Blood Pressure 146/64 79/41 O2 Sat by Pulse Oximetry 87 L 83 L 81 L 06/19/20 19:00 06/19/20 20:00 06/19/20 21:00 Temperature 97.6 F Pulse Rate 105 H 123 H 99 H Respiratory Rate 25 H 27 H 23 Blood Pressure 148/72 184/86 168/86 O2 Sat by Pulse Oximetry 91 L 86 L 85 L 06/19/20 21:42 06/19/20 22:00 06/19/20 23:00 Temperature Pulse Rate 114 H 100 H 99 H Respiratory Rate 24 20 Blood Pressure 176/80 182/82 O2 Sat by Pulse Oximetry 84 L 90 L 99 06/20/20 00:00 06/20/20 01:00 06/20/20 02:00 Temperature 97.6 F Pulse Rate 94 H 94 H 83 Respiratory Rate 22 20 18 Blood Pressure 187/78 167/74 156/68 O2 Sat by Pulse Oximetry 93 L 91 L 89 L 06/20/20 03:00 06/20/20 04:00 06/20/20 05:00 Temperature 98.9 F Pulse Rate 97 H 88 78 Respiratory Rate 21 20 18 Blood Pressure 151/67 149/65 153/68 O2 Sat by Pulse Oximetry 89 L 89 L 88 L 06/20/20 06:00 06/20/20 07:00 06/20/20 08:00 Temperature Pulse Rate 85 87 94 H Respiratory Rate 22 16 27 H Blood Pressure 140/65 159/69 161/69 O2 Sat by Pulse Oximetry 85 L 88 L 85 L 06/20/20 08:17 06/20/20 08:45 06/20/20 09:00 Temperature Pulse Rate 92 H 79 96 H Respiratory Rate 21 23 Blood Pressure 153/67 O2 Sat by Pulse Oximetry 86 L 85 L 84 L 06/20/20 10:00 06/20/20 10:10 06/20/20 11:00 Temperature Pulse Rate 93 H 96 H 88 Respiratory Rate 21 23 23 Blood Pressure 163/68 154/67 O2 Sat by Pulse Oximetry 81 L 81 L 81 L 06/20/20 12:00 06/20/20 13:00 06/20/20 14:00 Temperature 97.9 F Pulse Rate 94 H 95 H 97 H Respiratory Rate 21 22 23 Blood Pressure 151/67 143/65 148/67 O2 Sat by Pulse Oximetry 78 L 77 L 80 L 06/20/20 14:25 06/20/20 15:00 06/20/20 16:00 Temperature 98.2 F Pulse Rate 99 H 96 H 97 H Respiratory Rate 22 24 Blood Pressure 135/61 139/63 O2 Sat by Pulse Oximetry 78 L 78 L 73 L 06/20/20 17:00 06/20/20 17:18 06/20/20 17:30 Temperature Pulse Rate 93 H 91 H 97 H Respiratory Rate 21 23 Blood Pressure 130/63 O2 Sat by Pulse Oximetry 72 L 75 L 97 06/20/20 18:00 06/20/20 18:23 06/20/20 19:00 Temperature Pulse Rate 99 H 100 H 101 H Respiratory Rate 24 39 H 23 Blood Pressure 142/65 139/62 O2 Sat by Pulse Oximetry 76 L 75 L 77 L 09/06/20 20:00 06/20/20 20:23 06/20/20 21:00 Temperature 100.0 F H Pulse Rate 95 H 92 H Respiratory Rate 28 H 25 H Blood Pressure 125/58 129/60 O2 Sat by Pulse Oximetry 77 L 78 L 06/20/20 21:58 06/20/20 22:00 06/20/20 23:00 Temperature Pulse Rate 109 H 98 H 99 H Respiratory Rate 26 H 24 Blood Pressure 137/65 140/63 O2 Sat by Pulse Oximetry 79 L 77 L 80 L 06/20/20 23:59 06/21/20 01:00 06/21/20 02:00 Temperature 98.7 F Pulse Rate 96 H 95 H 97 H Respiratory Rate 24 25 H 31 H Blood Pressure 128/60 125/80 134/62 O2 Sat by Pulse Oximetry 81 L 80 L 70 L 06/21/20 03:00 06/21/20 04:00 06/21/20 05:00 Temperature 97.7 F Pulse Rate 91 H 98 H 100 H Respiratory Rate 25 H 30 H 31 H Blood Pressure 121/56 113/56 142/65 O2 Sat by Pulse Oximetry 75 L 62 L 66 L 06/21/20 06:00 06/21/20 07:00 06/21/20 08:00 Temperature 97.4 F L Pulse Rate 100 H 101 H 100 H Respiratory Rate 32 H 29 H 30 H Blood Pressure 128/56 139/61 129/57 O2 Sat by Pulse Oximetry 66 L 66 L 65 L 06/21/20 09:00 06/21/20 10:00 06/21/20 11:00 Temperature Pulse Rate 101 H 100 H 101 H Respiratory Rate 31 H 30 H 32 H Blood Pressure 130/58 116/53 120/56 O2 Sat by Pulse Oximetry 62 L 55 L 55 L 06/21/20 11:25 06/21/20 11:55 06/21/20 12:00 Temperature 97.3 F L Pulse Rate 98 H Respiratory Rate 22 35 H 35 H Blood Pressure 114/56 O2 Sat by Pulse Oximetry 52 L 06/21/20 12:25 06/21/20 13:00 06/21/20 14:00 Temperature Pulse Rate 100 H 101 H 102 H Respiratory Rate 34 H 32 H Blood Pressure 114/56 108/54 O2 Sat by Pulse Oximetry 47 L 45 L 49 L 06/21/20 15:00 06/21/20 16:00 06/21/20 17:00 Temperature 99.2 F Pulse Rate 102 H 102 H 106 H Respiratory Rate 29 H 30 H 30 H Blood Pressure 105/53 103/51 109/55 O2 Sat by Pulse Oximetry 53 L 52 L 55 L 06/21/20 17:30 06/21/20 18:00 06/21/20 19:00 Temperature Pulse Rate 106 H 107 H 107 H Respiratory Rate 26 H 28 H Blood Pressure 98/49 106/53 O2 Sat by Pulse Oximetry 54 L 59 L 63 L 06/21/20 20:00 Temperature Pulse Rate 20 L Respiratory Rate 3 L Blood Pressure O2 Sat by Pulse Oximetry Labs: Laboratory Last Values WBC 3.5 X10^3/uL (3.6-10.0) L 06/21/20 06:45 RBC 3.35 X10^6/uL (4.7-6.0) L 06/21/20 06:45 Hgb 10.0 g/dL (13.5-18.0) L 06/21/20 06:45 Hct 29.6 % (42.0-54.0) L 06/21/20 06:45 MCV 88.2 fL (80.0-100.0) 06/21/20 06:45 MCH 29.9 pg (27.0-34.0) 06/21/20 06:45 MCHC 33.9 g/dL (33.0-35.0) 06/21/20 06:45 RDW 14.4 % (11.6-16.5) 06/21/20 06:45 Plt Count 46 X10^3/uL (150.0-450.0) L 06/21/20 06:45 Plt Count Comment Decreased (ADEQUATE) 06/21/20 06:45 MPV 7.6 fL (7.4-11.0) 06/21/20 06:45 Neut % (Auto) 89.2 % (42.0-75.0) H 06/21/20 06:45 Lymph % (Auto) 6.1 % (21.0-51.0) L 06/21/20 06:45 [place] % (Auto) 2.3 % (0.0-13.0) 06/21/20 06:45 Eos % (Auto) 2.1 % (0.9-2.9) 06/21/20 06:45 Baso % (Auto) 0.3 % (0.2-1.0) 06/21/20 06:45 Neut # (Auto) 3.2 x10^3/uL (2.2-4.8) 06/21/20 06:45 Lymph # (Auto) 0.2 X10^3/uL (1.3-2.9) L 06/21/20 06:45 Woodruff # (Auto) 0.1 x10^3/uL (0.3-0.8) L 06/21/20 06:45 Eos # (Auto) 0.1 x10^3/uL (0.0-0.2) 06/21/20 06:45 Baso # (Auto) 0.0 X10^3/uL (0.0-0.1) 06/21/20 06:45 Absolute Nucleated RBC 0.1 /100WBC 06/21/20 06:45 Total Counted 100 06/21/20 06:45 Neutrophils % (Manual) 85 % (39-76) H 06/21/20 06:45 Band Neutrophils % 5 % (0-10) 06/21/20 06:45 Lymphocytes % (Manual) 8 % (13-43) L 06/21/20 06:45 Monocytes % (Manual) 2 % (4-9) L 06/21/20 06:45 Eosinophils % (Manual) 2 % (0-6) 06/19/20 04:30 Nucleated RBCs 2 06/21/20 06:45 Plt Clumps, EDTA Rare 06/20/20 04:45 Plt Morphology Comment Normal (NORMAL) 06/21/20 06:45 RBC Morphology Normal (NORMAL) 06/21/20 06:45 Hypochromasia Slight A 06/02/20 04:21 Anisocytosis Slight A 05/30/20 04:36 Ovalocytes Present 05/30/20 04:36 Sample Site Lr 06/03/20 12:04 ABG pH 7.490 (7.35-7.45) H 06/03/20 12:04 ABG pCO2 41.0 mmHg (35.0-45.0) 06/03/20 12:04 ABG pO2 43.0 mmHg (80.0-100.0) L* 06/03/20 12:04 ABG HCO3 31.2 mmol/L (22-26) H* 06/03/20 12:04 ABG O2 Saturation 83.0 % (90-100) L* 06/03/20 12:04 ABG Base Excess 7.2 mmol/L (-2.0-2.0) H 06/03/20 12:04 Lavelle Test Pos 06/03/20 12:04 A-a Gradient 619.0 mmHg 06/03/20 12:04 FiO2 100.0 06/03/20 12:04 Blood Gas Comments Pt jodei well. cdn 06/03/20 12:04 Sodium 134 mmol/L (136-145) L 06/21/20 06:45 Corrected Sodium TNP 06/21/20 06:45 Potassium 3.8 mmol/L (3.5-5.1) 06/21/20 06:45 Chloride 98 mmol/L (98-107) 06/21/20 06:45 Carbon Dioxide 31.3 mmol/L (21-32) 06/21/20 06:45 BUN 13 mg/dL (7-18) 06/21/20 06:45 Creatinine 0.64 mg/dL (0.70-1.30) L 06/21/20 06:45 Est GFR (MDRD) Af Amer > 60 (>60) 06/21/20 06:45 Est GFR (MDRD) Non-Af > 60 (>60) 06/21/20 06:45 Glucose 86 mg/dL (65-99) 06/21/20 06:45 Calcium 7.9 mg/dL (8.5-10.1) L 06/21/20 06:45 Corrected Calcium 9.3 mg/dL (8.5-10.1) 06/21/20 06:45 Total Bilirubin 0.60 mg/dL (0.2-1.0) 06/21/20 06:45 AST 56 Units/L (15-37) H 06/21/20 06:45 ALT 20 Units/L (12-78) 06/21/20 06:45 Alkaline Phosphatase 102 Units/L (46-116) 06/21/20 06:45 C-Reactive Protein 200.70 mg/L (0-3.0) H 05/30/20 04:36 Total Protein 5.0 g/dL (6.4-8.2) L 06/21/20 06:45 Albumin 2.2 g/dL (3.4-5.0) L 06/21/20 06:45 Globulin 2.8 g/dL (2.5-4.5) 06/21/20 06:45 Albumin/Globulin Ratio 0.8 Ratio (1.1-2.1) L 06/21/20 06:45 Amylase 41 Units/L (25-115) 05/27/20 14:54 Lipase 154 Units/L (73-393) 05/27/20 14:54 Specimen Type Clean catch urine 06/01/20 15:30 Urine Color Yellow (YELLOW) 06/01/20 15:30 Urine Appearance Clear (CLEAR) 06/01/20 15:30 Urine pH 8.0 (5.0 - 8.0) 06/01/20 15:30 Ur Specific [place] 1.010 (1.000-1.030) 06/01/20 15:30 Urine Protein Negative (NEGATIVE) 06/01/20 15:30 Urine Glucose (UA) Negative (NEGATIVE) 06/01/20 15:30 Urine Ketones Negative (NEGATIVE) 06/01/20 15:30 Urine Occult Blood Negative (NEGATIVE) 06/01/20 15:30 Urine Nitrite Negative (NEGATIVE) 06/01/20 15:30 Urine Bilirubin Negative (NEGATIVE) 06/01/20 15:30 Urine Urobilinogen Normal (NORMAL) 06/01/20 15:30 Ur Leukocyte Esterase Negative (NEGATIVE) 06/01/20 15:30 SARS-CoV-2 (PCR) Positive (NEGATIVE) A 05/27/20 15:32 Blood Type A POSITIVE 06/05/20 09:45 Antibody Screen Negative 06/05/20 09:45 Crossmatch See Detail 06/05/20 09:45 Reason For Visit: PNEUMONIA,ABDOMINAL PAIN,COVID 19 POSITIVE Discharge Date Discharge Date: 06/21/20 Discharge Diagnosis All Active Problems (Updated 06/06/20 @ 21:39 by SUSANA GARRETT) Pneumonia (Acute) Abdominal pain (Acute) 2019 novel coronavirus detected (Acute) Pneumonia (Acute) Abdominal pain (Acute) COVID-19 (Acute) Skin cancer (Chronic) COPD exacerbation (Chronic) COPD (chronic obstructive pulmonary disease) (Chronic) History of anemia (Chronic) Anxiety (Chronic) Depression (Chronic) History of CVA (cerebrovascular accident) (Chronic) History of seizures (Chronic) History of emphysema (Chronic) GERD (gastroesophageal reflux disease) (Chronic) Herpes (Chronic) Arthritis (Chronic) DDD (degenerative disc disease) (Chronic) Back pain (Chronic) Hypertension (Chronic) Hyperlipemia (Chronic) Plan of Treatment: Continue with present treatment and follow up plan. Pt is to keep follow up appointment as instructed and take medications as ordered. Discharge Medications Discharge Medications: doxycycline Allergy (Verified 05/27/20 16:45) Sulfa (Sulfonamide Antibiotics) [SULFA] Allergy (Verified 05/27/20 16:45) sulfamethoxazole [From Bactrim] Allergy (Verified 05/27/20 16:45) trimethoprim [From Bactrim] Allergy (Verified 05/27/20 16:45) CONTINUE taking the following medications aspirin [Aspir-81] 81 mg PO DAILY 05/27/20 [History] budesonide [Rhinocort Allergy] 1 spray INTRANASAL DAILY 05/27/20 [History] carbidopa-levodopa 250 tab PO TID 05/27/20 [History] carboxymethylcellulose sodium [Refresh Tears] 1 % OPHTHALMIC (EYE) BID 05/27/20 [History] cetirizine [Zyrtec] 10 mg PO HS 05/27/20 [History] cyclobenzaprine 10 mg PO Q24H PRN 05/27/20 [History] diclofenac sodium [Voltaren] 1 % TOPICAL HS 05/27/20 [History] docusate sodium [Colace] 100 mg PO HS 05/27/20 [History] hydrocodone-acetaminophen [Alexander] 1 tab PO Q6H PRN 05/27/20 [History] hydroxychloroquine [Plaquenil] 200 mg PO BID 05/27/20 [History] hydroxyzine pamoate [Vistaril] 25 mg PO DAILY 05/27/20 [History] ipratropium-albuterol [Combivent Respimat] 1 puff INHALATION QID 05/27/20 [History] montelukast [Singulair] 10 mg PO DAILY 05/27/20 [History] omeprazole magnesium [Prilosec OTC] 40 mg PO BID 05/27/20 [History] polyethylene glycol 3350 [Miralax] 17 g PO Q24H PRN 05/27/20 [History] pramipexole [Mirapex] 0.5 mg PO BID 05/27/20 [History] primidone 50 mg PO DAILY 05/27/20 [History] simethicone 80 mg PO Q8H PRN 05/27/20 [History] Discharge Disposition Discharge Disposition: Discharge Condition:
== END 2020-06-21 22:13 | disposition expired | DRG 177 ==
LOC: ICU 15:05 → ER 15:05 → OBSVTOIN 17:52 → ICU 19:46
PROVIDERS: ADMIT Obstetrics & Gynecology Obstetrics; ATTEND Obstetrics & Gynecology Obstetrics
DX: U07.1 COVID-19; R10.9 Unspecified abdominal pain; J96.90 Respiratory failure, unspecified, unspecified whether with hypoxia or hypercapnia; R13.10 Dysphagia, unspecified; E87.1 Hypo-osmolality and hyponatremia; J12.89 Other viral pneumonia; I87.2 Venous insufficiency (chronic) (peripheral); R26.81 Unsteadiness on feet; I10 Essential (primary) hypertension